=== PATIENT | female | born 1955 | race Caucasian/White ===

== ENCOUNTER → 2017-07-24 14:20 | Outpatient (CLI) | payer MEDICAID, SELFPAY ==
--- NOTE | 2017-07-24 14:26 | BD_ITS ---
STUDY: DUAL ENERGY X-RAY ABSORPTIOMETRY / DXA REASON FOR EXAM: Female, 62 years old. The patient is postmenopausal. Loss of height of 2 inches. TECHNIQUE: Bone Mineral Density (BMD) measurements of lumbar spine and bilateral hips were obtained. COMPARISON: None. FINDINGS: Lumbar Spine (L1-L4): g/cm2 (0.818) / T-score (-3.0) / Z-score (-1.7) Findings are suggestive of osteoporosis with a high fracture risk. Increased thoracic kyphosis. Left Femur Total: g/cm2 (0.698) / T-score (-2.5) / Z-score (-1.4) Left Femoral Neck: g/cm2 (0.738) / T-score (-2.2) / Z-score (-0.8) Right Femur Total: g/cm2 (0.700) / T-score (-2.4) / Z-score (-1.4) Right Femoral Neck: g/cm2 (0.743) / T-score (-2.1) / Z-score (-0.8) BD/Dexa Bone Density Study IMPRESSION: The patient is considered osteoporotic as outlined below according to World Tom Organization (WHO) criteria with a high fracture risk. Reference Information: The T-score is the number of standard deviations above or below the standard which is normal for young adults at their peak bone mineral density. The World Health Organization (WHO) interprets the T-scores as follows: Above -1 Normal bone density Between -1 and -2.5 Osteopenia Equal to / or below -2.5 Osteoporosis As a practical clinical guideline, osteopenia may be graded as follows: Mild -1 through -1.5 Moderate -1.6 through -2.0 Severe -2.1 through -2.4 The Z-score is the number of standard deviations above or below age-matched controls. A Z-score of less than -1.5 would be considered abnormal. References: 1. NIH Osteoporosis and Related Bone Diseases http://www.osteo.org 2. International Society for Clinical Densitometry http://www.iscd.org 3. National Osteoporosis Foundation http://www.nof.org Electronically Signed: Anmol Lopez MD at 15:33 EDT Tel [phone], Service support ,
== END ==
PROVIDERS: Visit Provider Nurse Practitioner Family
DX: M89.9 Disorder of bone, unspecified (principal); M41.9 Scoliosis, unspecified; M54.5 Low back pain
CPT/HCPCS: 77080

== ENCOUNTER 2017-08-03 13:00 | Outpatient (RCR) | payer MEDICAID, SELFPAY ==
--- NOTE | 2017-06-06 15:26 | HP.PTEVAL_ITS ---
Patient's Visit Information GRZEGORZ KEN is a 61 year old F referred to Physical Therapy by Honey HAMMONDS with a diagnosis of BACK AND LEG PAIN. Date of Evaluation: 06/06/17 Physical Therapist: Tangela Bray - Visit Plan Frequency: 2-3x /Week Duration: 4-6 Weeks Plan: *MONITOR LEFT LE WEAKNESS - ESPECIALLY DORSIFLEXORS. STOP AQUATIC THERAPY AND SCHEDULE REASSESSMENT WITH PT AND/OR DR. LEIJA IF PATIENT WORSENS. AQUATIC THERAPY FOR POSTURE CORRECTION/STRENGTHENING, INSTRUCTION IN APPROPRIATE BODY MECHANICS AND ACTIVITY MODIFICATIONS. DLS STARTING WITH A NEUTRAL SPINE PROGRESSING ROM TOLERATED. DAVID LE ROM, STRETCHING AND STRENGTHENING. HEP INSTRUCTION. 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 Disability: NO. Present symptoms: PATIENT REPORTS SHE HAS A LOT OF PAIN IN HER LOW BACK AND IT GOES ALL THE WAY DOWN HER LEFT LEG TO HER FOOT. A LOT OF FOOT CRAMPS. PAIN INTO RIGHT BUTTOCKS TOO. Present since: ABOUT 9 MONTHS AGO. Pain Scale: WORST 9/ 10, LEAST 3/10. Currently: 7/10. Commenced as a result of: FALLS. 3 FALLS IN THE LAST 9 MONTHS. NO FX. FALLS WERE IN THE YARD, [employer], AND [facility] [employer]. Symptoms at onset: BACK AND LEFT LEG. Worse: EVERYTHING. Better: CHANGE OF POSTITION. Disturbed sleep: YES. Previous history/Previous treatment: UNREMARKABLE. Coughing/sneezing/straining: POSITIVE. Gait: HAS TO USE CANE SOMETIMES TO TAKE PRESSURE OFF BACK AND LEG. CAN'T REALLY GO ANYWHERE BECAUSE OF THE PAIN. Difficulty initiating urinatin: NO. Accidents: NO MVA'S. Unexplained weight loss: NO. Imaging: LUMBAR X- RAYS AND MRI - LOWER SPINE IS GETTING THINNER AND DEGENERATING. IT CURVERS TO THE RIGHT. PMH: REALLY BAD ANXIETY AND PANIC ATTACKS THAT KEPT HER HOMEBOUND ABOUT A YEAR ABOUT TWO YEARS AGO. MUCH BETTER ON THE MEDICINE. HIGH CHOLESTEROL. Recent major surgery: NO. OTHER: PATIENTS WILL ALWAYS COME TO PT WITH PATIENT DUE TO HIGH ANXIETY AND ANXIETY ATTACKS. PATIENT REQUIRES LITERALLY 3 FEET OF PERSONAL SPACE AND DOES NOT LIKE TO BE TOUCHED. WILLING TO TRY AQUATIC THERAPY. NEW ONSET OF DAVID SHOULDER PAIN THAT SHE IS GOING TO TALK TO HER DOCTOR ABOUT. - Objective Sitting Posture: POOR. Standing Posture: POOR. Lordosis: REDUCED. SCOLIOSIS. Active Correction of posture: BETTER. Other Observations: RELYS ON TO HELP WITH MEDICAL HISTORY. APPEARS VERY SUPPORTIVE AND HELPFUL. PATIENT IS PLEASANT AND COOPERATIVE TO WORK WITH AND ACTUALLY DOING VERY GOOD WITH LETTING ME EXAM HER. SHE AMBULATES INDEP'LY INTO PT WITHOUT ANY ASSISTIVE DEVICES BUT ALWAYS MAKES SURE HER IS CLOSE. SHE WALKS VERY SLOW AND GUARDED WITH SHORT DAVID STRIDE LENGTH AND INCREASED TRUNK FLEXION. Motor deficit: DAVID LE'S ARE VERY WEAK. SHE HAS PARTIAL FOOT DROP ON THE LEFT. LLE WEAKNESS GREATER THAN RIGHT. RLE: HIP 3+/5, KNEE EXT 4-/5, KNEE FLEX 4/ 5 ANKLE DORSI 5/5. LLE: HIP 3/5, KNEE EXT 3+/5, KNEE FLEX 4-/5, ANKLE DORSIFLEX 2+/5. Sensory deficit: HYPERSENSATIVITY WITH LIGHT TOUCH TESTING OF RIGHT THIGH. ROM deficit: TIGHT DAVID HAMSTRINGS AND GASTROC SOLEUS COMPLEX'S. Reflexes: 2/3 DAVID LE'S. Dural Signs: *POSITIVE DAVID LE'S. Lumbar mvmt loss: flex - MOD. ext - BISI. R SG - BISI. L SG - BISI. *PATIENT HAS C/O INCREASED LOW BACK PAIN WITH LUMBAR ROM TESTING ALL PLANES. BACK MVMTS ARE SLOW AND GUARDED. Core strength: POOR. Palpation: PATIENT IS TENDER WITH LIGHT PALPATION OF HER THORACIC AND LUMBAR SPINE REGIONS. DECREASED LIGHT TOUCH SENSATION OVER SACRUM. TENDERNESS RIGHT BUTTOCK REGION > LEFT. INCREASED MUSCLE TONE DAVID PARASPINALS. - Goals Goal 1:: DECREASE C/O BACK AND DAVID LE SX'S. Goal Time Frame: 4-6 Weeks Goal 2:: IMPROVE SITTING, STANDING, WALKING, BENDING, LIFTING, ADL, HOUSEWORK AND SLEEP FUNCTION. Goal Time Frame: 4-6 Weeks Goal 3:: INSTRUCT IN PROPHYLAXIS Goal Time Frame: 4-6 Weeks - Rehabilitation Potential Rehabilitation Potential: Fair - Anticipated Interventions Patient/Client Instruction: Educate patient on: Condition, Plan of Care, Risk Factors, Benefits of Fitness Program For the Purpose of:: To improve self management Therapeutic Exercise to Include: Strength training, Balance training, Coordination, Body mechanics, Postural training, Flexibilty training, Gait and locomotor training, In an aquatic setting, Dynamic Lumbar Stabilization For the Purpose of:: To improve ability of physical actions for home/community/ work/leisure Thank you for the opportunity to evaluate your patient. For Medicare and Medicare HMO plans, please review the plan of care and approve it. It will need to be FAXED BACK to us at [phone] for Medicare purposes. Please let me know if there are questions or concerns regarding this plan of care. Physician Signature: Date:
--- NOTE | 2017-07-09 16:49 | HP.PTREVAL_ITS ---
DR.ABASAL Gerald It has been my pleasure to treat GRZEGORZ KEN over the last 6 visits for BACK AND LEG PAIN. Please see the progress note below for an update on the physical therapy plan of care! Subjective: PATIENT REPORTS SHE LIKES THE WATER. STATES SHE FEELS GOOD WHILE IN THE POOL AND AFTER BUT EVENTUALLY THE PAIN COMES BACK. Objective/Function: PATIENT HAS NOT BEEN ABLE TO COME TO PT CONSISTANTLY DUE TO ISSUES WITH HER INSURANCE BUT SHE TOLERATES TREATMENT WELL WHEN SHE IS HERE. SHE COMMUNICATES A FAIR UNDERSTANDING OF INSTRUCTIONS AFTER GIVEN TODAY BUT WILL NEED REINFORCEMENT. STARTED TO HAVE A PANIC ATTACK BECAUSE SHE CAME BACK TO PT WITHOUT HER AT FIRST THEN CALMED DOWN QUICKLY WHEN ARRIVED. UPON EXAM, THERE ARE NO SIGNIFICANT CHANGES COMPARED TO INITIAL EVALUATION. PATIENT WAS TENTATIVE BUT COOPERATIVE WITH ALL TESTING THAT WAS ALSO DONE AT [facility]. Plan Plan: CONTINUE AQUATIC THERAPY PER ORIG POC. PATIENT IS AGREEABLE. Goals Goal 1:: DECREASE C/O BACK AND DAVID LE SX'S. Goal Time Frame: 4-6 Weeks Goal Progress: Not Progressing Goal 2:: IMPROVE SITTING, STANDING, WALKING, BENDING, LIFTING, ADL, HOUSEWORK AND SLEEP FUNCTION. Goal Time Frame: 4-6 Weeks Goal Progress: Not Progressing Goal 3:: INSTRUCT IN PROPHYLAXIS Goal Time Frame: 4-6 Weeks Goal Progress: Progressing Anticipated Interventions Patient/Client Instruction: Educate patient on: Condition, Plan of Care, Risk Factors, Benefits of Fitness Program For the Purpose of:: To improve self management Therapeutic Exercise to Include: Strength training, Balance training, Coordination, Body mechanics, Postural training, Flexibilty training, Gait and locomotor training, In an aquatic setting, Dynamic Lumbar Stabilization For the Purpose of:: To improve ability of physical actions for home/community/ work/leisure Please do not hesitate to contact me at [phone] by phone or Fax: if you have questions or concerns regarding this new plan of care! Sincerely, Tangela Bray
--- NOTE | 2017-08-03 14:08 | HP.PTDCSUM ---
HP - PT D/C Summary It has been my pleasure to treat GRZEGORZ KEN under orders from Honey Ruiz, for the diagnosis of BACK AND LEG PAIN for a total of 16 visit(s). Discharge Date: 08/03/17 Please see the following information for a summary of their discharge status. - Subjective Subjective: PATIENT REPORTS SHE IS ABLE TO SIT UP BETTER AND NOW SHE HAS EX'S THAT SHE CAN DO. SHE STATES THIS HAS IMPROVED HOW SHE FEELS. SHE REPORTS SHE CAN STAND TO DO THE DISHES NOW. LAUNDRY AND VACUUMING ARE GOING BETTER TOO AND SHE CAN DO THEM WITH LESS PAIN. PATIENT REPORTS IT WAS MUCH EASIER TO WALK BACK TO THE TREATMENT ROOM TODAY (ABOUT 300 FEET) COMPARED TO BEFORE HAVING ANY PT. SHE REPORTS HER WALKING IS MORE STEADY AND LESS PAINFUL. SHE REPORTS SHE DOESN'T GET TIRED OVER-ALL. SHE REPORTS SHE IS READY TO STOP PT AND CONTINUE EXERCISING ON HER OWN. SHE STATES THE CANE STILL HELPS A LOT INCASE SHE GETS A CRAMP IN HER LEG OR SOMETHING BUT SHE DOESN'T USE IT AT HOME. - Pain LBP Pain Intensity (Out of 10): 4 L knee Pain Intensity (Out of 10): 2 RLE Pain Intensity (Out of 10): 0 - Overall Improvement % Improvement: 40 - Objective Objective/Function: ALL GOALS MET. PATIENT HAS MADE GOOD PROGRESS WITH AQUATIC THERAPY. PATIENT STILL RELIES ON TO HELP WITH MEDICAL HISTORY. APPEARS VERY SUPPORTIVE AND HELPFUL. PATIENT IS PLEASANT AND COOPERATIVE TO WORK WITH AND ACTUALLY DOING VERY GOOD WITH LETTING ME EXAM HER AGAIN TODAY. SHE AMBULATES INDEP'LY INTO PT WITH A STRAIGHT CANE. SHE WALKS WITH FAIR CADANCE, ERECT POSTURE AND NO LOSS OF BALANCE. Motor deficit: DAVID LE STRENGTH HAS IMPROVED SIGNIFICANTLY. RLE: HIP 4-/5, KNEE EXT 4/5, KNEE FLEX 5/5 ANKLE DORSI 5/5. LLE: HIP 3+/5, KNEE EXT 4-/5, KNEE FLEX 4/5, ANKLE DORSIFLEX 4/5. Sensory deficit: HYPERSENSATIVITY WITH LIGHT TOUCH TESTING OF LEFT THIGH AND POSTERIOR KNEE. Dural Signs: NEGATIVE. Lumbar mvmt loss: flex - NIL. ext - BISI. R SG - MIN. L SG - MOD. *PATIENT HAS C/O INCREASED LOW BACK PAIN WITH LUMBAR ROM TESTING INTO EXTENSION AND LEFT SG. Core strength: POOR. 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 DECREASED LIGHT TOUCH SENSATION OVER SACRUM. MUCH LESS TENDERNESS DAVID BUTTOCK REGIONS. - Goals Goal 1:: DECREASE C/O BACK AND DAVID LE SX'S. Goal Progress: Goal Met Goal 2:: IMPROVE SITTING, STANDING, WALKING, BENDING, LIFTING, ADL, HOUSEWORK AND SLEEP FUNCTION. Goal Progress: Goal Met Goal 3:: INSTRUCT IN PROPHYLAXIS Goal Progress: Goal Met - Plan Plan: D/C. PATIENT AND HER ARE AGREEABLE. - D/C Information If there are questions or concerns regarding this patient's physical therapy, please feel free to call me at [phone]. Thank you for the referral of this patient. Sincerely, Tangela Bray
--- NOTE | 2017-08-03 14:13 | HP.PTDCSUM_ITS ---
HP - PT D/C Summary It has been my pleasure to treat GRZEGORZ KEN under orders from Honey Ruiz, for the diagnosis of BACK AND LEG PAIN for a total of 16 visit(s). Discharge Date: 08/03/17 Please see the following information for a summary of their discharge status. - Subjective Subjective: PATIENT REPORTS SHE IS ABLE TO SIT UP BETTER AND NOW SHE HAS EX'S THAT SHE CAN DO. SHE STATES THIS HAS IMPROVED HOW SHE FEELS. SHE REPORTS SHE CAN STAND TO DO THE DISHES NOW. LAUNDRY AND VACUUMING ARE GOING BETTER TOO AND SHE CAN DO THEM WITH LESS PAIN. PATIENT REPORTS IT WAS MUCH EASIER TO WALK BACK TO THE TREATMENT ROOM TODAY (ABOUT 300 FEET) COMPARED TO BEFORE HAVING ANY PT. SHE REPORTS HER WALKING IS MORE STEADY AND LESS PAINFUL. SHE REPORTS SHE DOESN' T GET TIRED OVER-ALL. SHE REPORTS SHE IS READY TO STOP PT AND CONTINUE EXERCISING ON HER OWN. SHE STATES THE CANE STILL HELPS A LOT INCASE SHE GETS A CRAMP IN HER LEG OR SOMETHING BUT SHE DOESN'T USE IT AT HOME. - Pain LBP Pain Intensity (Out of 10): 4 L knee Pain Intensity (Out of 10): 2 RLE Pain Intensity (Out of 10): 0 - Overall Improvement % Improvement: 40 - Objective Objective/Function: ALL GOALS MET. PATIENT HAS MADE GOOD PROGRESS WITH AQUATIC THERAPY. PATIENT STILL RELIES ON TO HELP WITH MEDICAL HISTORY. APPEARS VERY SUPPORTIVE AND HELPFUL. PATIENT IS PLEASANT AND COOPERATIVE TO WORK WITH AND ACTUALLY DOING VERY GOOD WITH LETTING ME EXAM HER AGAIN TODAY. SHE AMBULATES INDEP'LY INTO PT WITH A STRAIGHT CANE. SHE WALKS WITH FAIR CADANCE, ERECT POSTURE AND NO LOSS OF BALANCE. Motor deficit: DAVID LE STRENGTH HAS IMPROVED SIGNIFICANTLY. RLE: HIP 4-/5, KNEE EXT 4/5, KNEE FLEX 5/5 ANKLE DORSI 5/5. LLE: HIP 3+/5, KNEE EXT 4-/5, KNEE FLEX 4/5, ANKLE DORSIFLEX 4/5. Sensory deficit: HYPERSENSATIVITY WITH LIGHT TOUCH TESTING OF LEFT THIGH AND POSTERIOR KNEE. Dural Signs: NEGATIVE. Lumbar mvmt loss: flex - NIL. ext - BISI. R SG - MIN. L SG - MOD. *PATIENT HAS C/O INCREASED LOW BACK PAIN WITH LUMBAR ROM TESTING INTO EXTENSION AND LEFT SG. Core strength: POOR. 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 DECREASED LIGHT TOUCH SENSATION OVER SACRUM. MUCH LESS TENDERNESS DAVID BUTTOCK REGIONS. - Goals Goal 1:: DECREASE C/O BACK AND DAVID LE SX'S. Goal Progress: Goal Met Goal 2:: IMPROVE SITTING, STANDING, WALKING, BENDING, LIFTING, ADL, HOUSEWORK AND SLEEP FUNCTION. Goal Progress: Goal Met Goal 3:: INSTRUCT IN PROPHYLAXIS Goal Progress: Goal Met - Plan Plan: D/C. PATIENT AND HER ARE AGREEABLE. - D/C Information If there are questions or concerns regarding this patient's physical therapy, please feel free to call me at [phone]. Thank you for the referral of this patient. Sincerely, Tangela Bray
== END 2017-08-03 19:00 | disposition home or self-care (01) ==
LOC: PT 13:00
PROVIDERS: Visit Provider Anesthesiology Pain Medicine
DX: M54.9 Dorsalgia, unspecified (principal); M79.606 Pain in leg, unspecified
CPT/HCPCS: 97113; 97162; 97164; 97530

== ENCOUNTER → 2017-11-06 10:35 | Outpatient (CLI) | payer MEDICAID, SELFPAY ==
--- NOTE | 2017-11-06 10:37 | RAD_ITS ---
STUDY: X-RAY - LUMBAR SPINE REASON FOR EXAM: Female, 62 years old. Pain TECHNIQUE: 4 view(s) of the lumbar spine were obtained. COMPARISON: None FINDINGS: Osteopenia. Slight scoliosis. Normal vertebral body height and alignment. Preserved lordosis. Normal disc intervals and endplates. Excellent minimal low lumbar facet arthropathy at L4-L5. Flexion and extension views there is no abnormal motion. RAD/L/S Spine Min 4 Views IMPRESSION: Minimal low lumbar facet arthropathy. Mild scoliosis. No other significant spondylosis. No evidence of abnormal motion on flexion or extension views. Electronically Signed: Von Oliveira, at 11:42 EDT Tel , Service support ,
--- NOTE | 2017-11-06 10:37 | RAD_ITS ---
STUDY: XR SPINE ENTIRE THORACIC T LUMBAR (W SKULL, CERVICAL AND SACRAL SPINE IF PERFORMED) REASON FOR EXAM: Female, 62 years old. Pain TECHNIQUE: Radiological exam, spine, entire thoracic and lumbar, including skull, cervical and sacral spine if performed (eg, scoliosis evaluation); 2 or 3 views. COMPARISON: Lumbar spine 11/06/2017. Thoracic spine 05/03/2017. Hip, pelvis and lumbar spine 02/14/2017. FINDINGS: Clear lungs. The chest is somewhat hyperinflated which may reflect underlying COPD. Correlate smoking history. Normal cardiomediastinal silhouette. Normal thoracic cage and shoulder girdle. No acute intra-abdominal process is evident. Unremarkable bowel pattern. Grossly normal size and position of the solid organs. Normal appearance of the pelvis, SI joints and hip joints. Very slight lumbar scoliosis. No significant thoracic scoliosis. Mildly exaggerated lumbar lordosis. Moderate thoracic kyphosis. Normal thoracic vertebral body height and alignment. Normal lumbar vertebral body height and alignment. There is no significant thoracal lumbar degenerative disc disease and facet arthropathy. There is perhaps minimal facet degeneration at L4-L5. RAD/Scoliosis 2 or 3 views IMPRESSION: Thoracic kyphosis. Mildly exaggerated lumbar lordosis. Slight lumbar scoliosis. No significant thoracal lumbar spondylosis. Electronically Signed: Von Oliveira, at 11:45 EDT Tel , Service support ,
== END ==
PROVIDERS: Visit Provider Orthopaedic Surgery
DX: M54.5 Low back pain (principal)
CPT/HCPCS: 72082; 72110

== ENCOUNTER 2017-12-07 12:30 | Outpatient (RCR) | payer MEDICAID, SELFPAY ==
--- NOTE | 2017-11-12 18:50 | HP.PTEVAL_ITS ---
Patient's Visit Information GRZEGORZ KEN is a 62 year old F referred to Physical Therapy by Kelsy Guillory with a diagnosis of LEFT SI JOINT PAIN,BACK PAIN,LEG PAIN. Date of Evaluation: 11/12/17 Physical Therapist: Osiel Randall PT, - Visit Plan Frequency: 2x /Week Duration: 4 Weeks Plan: start with grade slow DLS,posture add modalities for pain releive - Subjective Subjective: This 62 y/o female presents to physical therapy left SI ,back pain and leg pain for about 1 1/2 year. Location symmtrical lumbar radiating buttuck leg calf. Symptoms worse with walking ,standing,bending,lifting,sitting. Symptoms nothing better except with rest. C/O parathesia/tingling thigh. Patient uses cane with gait. Patient coughing/sneezing -. Patient pain affects sleeping. Pain affects ADL'S and housework tasks impairs QOL. Patient has had prior PT in the water.Patient has h/o falls. 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 SOCIAL: - Pain Bilateral Back Pain Intensity (Out of 10): 7 Pain Intensity Range: 10 Left Lower Extremity Pain Intensity (Out of 10): 6 Pain Intensity Range: 10 - Objective POSTURE: mild foward posture hips/knees flexed. GAIT: amblates with cane mild foward posture slow gio anatalgic. NEURO: c/o parathesia left left,light touch intact ,reflexes 3/3 L3-4,L4-5,L5-S1. MMT: quads/hams 4-/5 right ,left 3+ /5,hip flexion bilateral 3+/5 ankle 4/5. LUMBAR ROM : flexion mod loss, extension mod severe loss,side glides mod loss. FLEXABLITY: hams min loss - Special Tests L/S Slump test left side: Negative L/S Slump test right side: Negative L/S Left Straight Leg Raise: Negative L/S Right Straight Leg Raise: Negative - Goals Goal 1:: Independant with HEP Goal Time Frame: 4-6 Weeks Goal 2:: Independant with posture for ADL'S Goal Time Frame: 4-6 Weeks Goal 3:: Decreases lumbar pain by 40% or greater to improve function with ADL'S Goal Time Frame: 4-6 Weeks Goal 4:: Patient to improve lumbar ROM for function of recovery Goal Time Frame: 4-6 Weeks Goal 5:: Patient bve able to perform ADL'S and housework tasks with min limitations. Goal Time Frame: 4-6 Weeks - Rehabilitation Potential Physical Therapy Diagnosis: This patient has multiple comormidities to include back pain and lef leg pain impairs gait,strength ,lumbar ROM causes deficits in ADL'S thus benifit from skilled PT . Rehabilitation Potential: Good - Anticipated Interventions Patient/Client Instruction: Educate patient on: Condition, Plan of Care For the Purpose of:: To decrease pain, To increase ROM, To improve muscle performance and motor function, To improve ability to perform ADL's, To increase tolerance to activity/condition/position, To improve performance and independence with ADL's, To improve ability of physical actions for home/ community/work/leisure, To improve health of tissue, To decrease soft tissue restriction, To increase flexibility/ROM, To improve health and function, To improve ability to perform tasks related to life management Therapeutic Exercise to Include: Strength training, Body mechanics, Postural training, Flexibilty training, Dynamic Lumbar Stabilization For the Purpose of:: To decrease pain, To increase ROM, To improve nutrient delivery to tissue, To increase oxygenation perfusion, To improve muscle performance and motor function, To increase tolerance to activity/condition/ position, To improve ability of physical actions for home/community/work/leisure , To improve health of tissue, To decrease soft tissue restriction, To increase flexibility/ROM, To improve ability to perform tasks related to life management TENS: Yes IF ES: Yes Cryotherapy (ice pack, ice massage): Yes Thermo therapy (hot pack): Yes Ultrasound (thermal/non thermal): Yes For the Purpose of:: To decrease pain, To increase ROM, To improve nutrient delivery to tissue, To increase oxygenation perfusion, To improve health of tissue, To decrease soft tissue restriction Thank you for the opportunity to evaluate your patient. For Medicare and Medicare HMO plans, please review the plan of care and approve it. It will need to be FAXED BACK to us at [phone] for Medicare purposes. Please let me know if there are questions or concerns regarding this plan of care. Physician Signature: Date:
--- NOTE | 2018-03-18 13:55 | HP.PT.NRP ---
HP - Discharge Summary (1) - Patient Information GRZEGORZ KEN was seen in my office for initial evaluation on 11/12/17. The following Plan of Care was established for this patient: Initial Frequency: 2x /Week Initial Duration: 4 Weeks - Anticipated Interventions Patient/Client Instruction: Educate patient on: Condition, Plan of Care For the Purpose of:: To decrease pain, To increase ROM, To improve muscle performance and motor function, To improve ability to perform ADL's, To increase tolerance to activity/condition/position, To improve performance and independence with ADL's, To improve ability of physical actions for home/community/work/leisure, To improve health of tissue, To decrease soft tissue restriction, To increase flexibility/ROM, To improve health and function, To improve ability to perform tasks related to life management Therapeutic Exercise to Include: Strength training, Body mechanics, Postural training, Flexibilty training, Dynamic Lumbar Stabilization For the Purpose of:: To decrease pain, To increase ROM, To improve nutrient delivery to tissue, To increase oxygenation perfusion, To improve muscle performance and motor function, To increase tolerance to activity/condition/position, To improve ability of physical actions for home/community/work/leisure, To improve health of tissue, To decrease soft tissue restriction, To increase flexibility/ROM, To improve ability to perform tasks related to life management TENS: Yes IF ES: Yes Cryotherapy (ice pack, ice massage): Yes Thermo therapy (hot pack): Yes Ultrasound (thermal/non thermal): Yes For the Purpose of:: To decrease pain, To increase ROM, To improve nutrient delivery to tissue, To increase oxygenation perfusion, To improve health of tissue, To decrease soft tissue restriction This patient was last seen in our office 12/07/17. Pertinent comments regarding their Physical therapy will appear below: Patient lumbar pain focusing on DLS,POSTURAL EX'S ,MODALITIES . Patient was provided with HEP THUS D/C . At this point I will be discontinuing this patient from physical therapy. I would be happy to see this patient again in the future if found appropriate by the physician. Thank you! Osiel Randall, PT,
== END 2017-12-07 19:00 | disposition home or self-care (01) ==
LOC: PT 12:30
PROVIDERS: Visit Provider Orthopaedic Surgery
DX: M53.3 Sacrococcygeal disorders, not elsewhere classified (principal); M54.9 Dorsalgia, unspecified; M79.605 Pain in left leg
CPT/HCPCS: 97014; 97110; 97162; G0283

== ENCOUNTER → 2018-02-07 15:24 | Outpatient (CLI) | payer MEDICAID, SELFPAY ==
--- NOTE | 2018-02-07 15:25 | BI_ITS ---
MAMMOGRAPHY - BILATERAL SCREENING REASON FOR EXAM: Female, 62 years old. Routine annual screening examination. PERTINENT HISTORY: Aunt with breast cancer. TECHNIQUE: Digital bilateral breast sammie (3D mammographic acquisition) in the CC and MLO projections. 2-D mediolateral oblique (MLO) and craniocaudad (CC) views of both breasts were obtained. CAD: Full Field Digital Mammography with Computer Added Detection was performed. COMPARISON: Comparison is made with prior study dated July 31, 2016 and January 17, 2011. Comparison is also made with prior ultrasound the right breast dated July 31, 2016. FINDINGS: Breast Composition: The breasts are heterogeneously dense, which may obscure small masses. There are no dominant masses or suspicious calcifications. No other significant abnormalities are identified. There has been no significant change since the prior study. BI/SCREENING MAMM (CAD), BILAT IMPRESSION: Stable bilateral screening mammogram. Yearly follow-up mammogram recommended. (A) ASSESSMENT CATEGORY: BIRADS Category 1: Negative. A letter regarding these results will be sent to the patient by the facility within 30 days. Approximately 10% of breast cancers are not detected by mammography. A normal mammogram should not delay biopsy of a clinically suspicious abnormality. [id number] Electronically Signed: Anmol Lopez MD at 8:46 EDT Tel [phone], Service support ,
== END ==
DX: Z12.31 Encounter for screening mammogram for malignant neoplasm of breast (principal)
CPT/HCPCS: 77063; 77067

== ENCOUNTER 2018-12-13 16:30 | Outpatient (RCR) | payer MEDICAID, SELFPAY ==
--- NOTE | 2018-10-21 18:19 | HP.PTEVAL ---
Patient's Visit Information GRZEGORZ KEN is a 63 year old F referred to Physical Therapy by Azam Long MD with a diagnosis of Balance issues. Date of Evaluation: 10/21/18 Physical Therapist: LUDIVINA Bass - Visit Plan Frequency: 2x /Week Duration: 4 Weeks Plan: test pt on the neurocom and then call to see if impairments are to be treated if there are any. Probable 2 X / week for 4 weeks and to include functional transfers, gait , balance activities, LE strength with HEP - Subjective Findings: Pt has been having a lot of falling, bumping into agarwal and grabbing the table. She reports that she has fallen twice in the last month. The first time she tripped over her puppy and the other time she was walking in the yard and hit a hole and down she went. No dizziness. This all started a couple schwartz ago and had a bad few falls and hurt her back and this has slowly progressed. SHe feels that he legs are weak. She reports that she can not do the stairs withotu pain in the LB and L Leg. Dr is checking for a previous stroke in a head scan sometime soon. No dizziness. She has stairs into the home and she has railing ( 4 steps into the house). - Pain Back pain Pain Intensity (Out of 10): 4 L leg pain Pain Intensity (Out of 10): 6 - Objective Gait: walks with a straight cane with veering to the R with shorter stride length. LE MMT: B hip flex 4-/5, B knee ext 4-/5, R knee flex 4/5 and L 4-/5, B hip abd 4-/5. Pt is not able to heel and toe raise due to balance. FGA: 9. Pt needs help going from supine to sit or sidelying to sit. Pt struggles with sit to stand without the use of her UE's - Balance Scores Functional Gait Assessment Score: 9 % Disability: 70.0000 - Goals Goal 1:: I HEP Goal Time Frame: 4-6 Weeks Goal 2:: Increase LE strength by 1/2 muscle grade ( at time of eval: LE MMT: B hip flex 4-/5, B knee ext 4-/5, R knee flex 4/5 and L 4-/5, B hip abd 4-/5. Pt is not able to heel and toe raise due to balance). Goal Time Frame: 4-6 Weeks Goal 3:: Increase FGA by 5 points to decrease fall risk ( to total of 14) Goal Time Frame: 4-6 Weeks Goal 4:: Test pt on the Neurocom Goal Time Frame: 4-6 Weeks - Rehabilitation Potential Rehabilitation Potential: Good - Anticipated Interventions Patient/Client Instruction: Educate patient on: Condition, Plan of Care For the Purpose of:: To improve nutrient delivery to tissue, To improve muscle performance and motor function, To improve ability to perform ADL's, To increase tolerance to activity/condition/position, To improve performance and independence with ADL's, To improve ability of physical actions for home/community/work/leisure, To improve gait and locomotor functions, To improve endurance, To improve balance, To improve safety with gait Therapeutic Exercise to Include: Strength training, Balance training, Postural training, Flexibilty training, Gait and locomotor training, via Neurocom Balance Mas, Active ROM For the Purpose of:: To improve muscle performance and motor function, To increase tolerance to activity/condition/position, To improve performance and independence with ADL's, To decrease level of supervision to perform tasks, To improve ability of physical actions for home/community/work/leisure, To improve gait and locomotor functions, To improve endurance, To improve balance, To improve safety with gait Functional Training to Include: Gait training For the Purpose of:: To improve gait and locomotor functions, To improve safety with gait Thank you for the opportunity to evaluate your patient. For Medicare and Medicare HMO plans, please review the plan of care and approve it. It will need to be FAXED BACK to us at [phone] for Medicare purposes. For Medicare only, by signing this I certify the plan of care. Please let me know if there are questions or concerns regarding this plan of care. Physician Signature: Date:
--- NOTE | 2018-11-13 18:58 | HP.PTCOM ---
PT Communication Note 11/13/[address] Azam Long MD , Thank you for the referral of Lauryn Godwin to our clinic. She was tested on our NeuroCom Equit[employer] system today and enclosed are the pts test results. On the Sensory Organization test ( SOT) she had trouble with the use of her visual and vestibular systems to help her maintain her balance. Her center of gravity alignment was normal and she is more ankle dominant in her strategy, which is higher level. On the Motor Control Test (MCT) the pt exhibited overall normal reaction times for her age. On the Limits of Stability Test ( LOS) she had good ability to overall weight shift with only a slightly decreased ability to weight shift to the left. At this point in time, we will see the pt 2X/ week for 4 weeks for weight shifting to the L, vestibular and visual inputs to balance, LE strengthening, gait training, functional activities with HEP. Sincerely, Marta Camargo, LUDIVINA Contact Information
--- NOTE | 2019-01-28 11:24 | HP.PT.NRP ---
HP - Discharge Summary (1) - Patient Information GRZEGORZ KEN was seen in my office for initial evaluation on 10/21/18. The following Plan of Care was established for this patient: Initial Frequency: 2x /Week Initial Duration: 4 Weeks - Anticipated Interventions Patient/Client Instruction: Educate patient on: Condition, Plan of Care For the Purpose of:: To improve nutrient delivery to tissue, To improve muscle performance and motor function, To improve ability to perform ADL's, To increase tolerance to activity/condition/position, To improve performance and independence with ADL's, To improve ability of physical actions for home/community/work/leisure, To improve gait and locomotor functions, To improve endurance, To improve balance, To improve safety with gait Therapeutic Exercise to Include: Strength training, Balance training, Postural training, Flexibilty training, Gait and locomotor training, via Neurocom Balance Mas, Active ROM For the Purpose of:: To improve muscle performance and motor function, To increase tolerance to activity/condition/position, To improve performance and independence with ADL's, To decrease level of supervision to perform tasks, To improve ability of physical actions for home/community/work/leisure, To improve gait and locomotor functions, To improve endurance, To improve balance, To improve safety with gait Functional Training to Include: Gait training For the Purpose of:: To improve gait and locomotor functions, To improve safety with gait This patient was last seen in our office 12/13/18. Pertinent comments regarding their Physical therapy will appear below: Pt reported on her last visit that she was really sore and was not tolerating PT well She did not reschedule and will be discharged at this time. At this point I will be discontinuing this patient from physical therapy. I would be happy to see this patient again in the future if found appropriate by the physician. Thank you! Marta Camargo, MPT
== END 2018-12-13 19:00 | disposition home or self-care (01) ==
LOC: PT 16:30
PROVIDERS: Referring Provider Psychiatry & Neurology Neurology; Visit Provider Psychiatry & Neurology Neurology
DX: R26.89 Other abnormalities of gait and mobility (principal)
CPT/HCPCS: 97110; 97161; 97750

== ENCOUNTER → 2019-11-27 17:47 | Outpatient (CLI) | payer MEDICAID, SELFPAY ==
--- NOTE | 2019-11-27 17:55 | CT_ITS ---
STUDY: CT BRAIN WITH AND WITHOUT CONTRAST REASON FOR EXAM: Female, 64 years old. MIGRAINES 2-3 X A WEEK RADIATION DOSAGE (If Supplied By Facility): CTDIvol = ( 44.99 ) mGy, DLP = ( 1603.47 ) mGycm TECHNIQUE: Transaxial CT imaging of the brain was performed pre and post contrast administration. The examination was performed with intravenous administration of IV 50mL Isovue-300. Individualized dose optimization techniques were used for this CT. COMPARISON: None. FINDINGS: Normal soft tissue structures. Normal calvarium. Normal size ventricles and extra-axial spaces for the patient''s age. Normal white matter tracts of the cerebral hemispheres. Normal basal ganglia and thalami. Normal brainstem. Normal cerebellum. There is no intracranial hemorrhage. There are no findings of an acute ischemic infarction. Normal visualized paranasal sinuses. CT/Brain/Head W/WO Contrast IMPRESSION: Normal unenhanced and enhanced CT scan of the brain. Electronically Signed: Kashmir Lucia MD at 23:38 EDT , Service support ,
[2019-11-27 18:01] LABS: CREATININE FINGERSTICK 0.8 mg/dL (0.55-1.02)
== END ==
DX: G43.909 Migraine, unspecified, not intractable, without status migrainosus (principal)
CPT/HCPCS: 70470; Q9967

== ENCOUNTER 2020-03-24 13:37 | Emergency (ER) | payer MEDICAID, SELFPAY ==
[2020-03-24 13:40] VITALS: BP 133/71; PULSE 81; RESP 20; TEMP 36.2; O2SAT 96; BMI 22.6
[2020-03-24 14:04] VITALS: O2SAT 96
--- NOTE | 2020-03-24 14:30 | ED.VISSUMM ---
- ER Visit Summary Date of Service: 03/24/20 Chief Complaint: Shortness of breath History of Present Illness: The patient is a 64 F who presents with shortness of breath that began suddenly approximately 1-1/2 hours prior to arrival. Patient states she was cleaning her house when this began. Patient states she has a history of COPD. Patient states she felt like she could not catch her breath. Patient states this has been improving since she arrived here in the emergency department. Patient denies any cough. Patient denies any chest pain or palpitations. Patient does admit to some nausea and vomiting. Patient denies any fevers or chills. Patient denies any loss of taste or smell. Patient states her was recently hospitalized with similar symptoms but was Covid negative. Physical Examination: Vital signs are stable. Patient is afebrile. Patient is in no acute distress. Oral mucosa is pink and moist. Neck is supple. Trachea is midline. There is no JVD. Heart was regular rate and rhythm. Lungs are diminished bilaterally. There is good respiratory effort noted. Abdomen is soft. Bowel sounds are normal. There is no tenderness. Cranial nerves II through XII are intact. There are no focal motor or sensory deficits noted. Extremities are intact. There is no calf tenderness or edema. Test Results: CBC and comprehensive metabolic profile were obtained and were essentially within normal limits. Lactate was normal. COVID-19 rapid antigen test was negative. Influenza test was negative. Portable 1 view chest x-ray was obtained. On my interpretation, lung paredes are clear. There is normal cardiac silhouette. Bony thorax is normal. There is no acute process noted. Radiologist also interpreted the x-ray and agrees. Emergency Department Course and Treatment: Patient was given albuterol inhaler here. Patient was given Zofran for nausea. Patient feels better on reevaluation. Patient was instructed to continue her inhaler as needed. Patient was instructed to follow-up with her primary care physician in 5 to 7 days. Patient understood and was agreeable with the plan. All questions were answered. Disposition: Discharge home Impression: 1. Dyspnea. This note was generated with VIVAation software. It may contain incorrect words, spelling, and punctuation that were not noted in review of the chart prior to signing ED Disposition - Plan for ED Patient: Disposition: Home or Assisted Living Diagnosis: Dyspnea Instructions: ED Dyspnea Referrals: [facility],Sun Powers [Primary Care Provider] - 5-7 Days
[2020-03-24 14:46] VITALS: BP 122/68; PULSE 82; RESP 20; TEMP 36.4; O2SAT 94
[2020-03-24] MEDS: Ondansetron 4 MG/2 ML Vial IV (14:47)
[2020-03-24 15:00] VITALS: BP 119/63; PULSE 82; RESP 22; TEMP 36.3; O2SAT 94
--- NOTE | 2020-03-24 15:12 | RAD_ITS ---
STUDY: X-RAY CHEST REASON FOR EXAM: Female, 64 years old. SUDDEN ONSET DYSPNEA WHILE CLEANING HOUSE, NAUSEA. SPOUSE HOSPITALZED RECENTLY WITH SIMILAR SYMPTOMS, COVID NEG PER EMS. HX OF COPD. TECHNIQUE: Single AP portable view of the chest. COMPARISON: 03/06/2016 FINDINGS: The lungs are clear and expanded. There is no demonstrated pleural abnormality. Normal size heart. Normal mediastinum and lev. Normal visualized pulmonary arteries. Normal visualized aortic arch and descending thoracic aorta. Normal visualized thoracic spine. Normal visualized ribs, clavicles, and shoulders. There is no demonstrated abnormality of the visualized soft tissue structures of the upper abdomen. RAD/Chest 1 View (Portable) IMPRESSION: Normal x-ray examination of the chest. Electronically Signed: Von Ruiz MD at 15:37 EST Tel , Service support ,
[2020-03-24 15:15] LABS: Absolute Lymphocyte Count 2.11 X10^3/uL (0.83-4.51); Absolute Neutrophil Count 7.2 X10^3/uL (2.0-7.7); Basophil# 0.08 X10^3/uL; Basophil% 0.8 % (0-1); Eosinophil# 0.17 X10^3/uL; Eosinophils% 1.7 % (0-5); Hematocrit 47.6 % (37-47); Hemoglobin 15.9 g/dL (12.0-15.0); Lymphocyte # 2.11 X10^3/ul (4.0); Lymphocyte % 20.9 % (19-41); Mean Corp Hgb Conc 33.4 g/dL (32-36); Mean Corpuscular Volume 86.9 fL (81-99); Mean Platelet Vol. 10.3 fl (6.2-12.0); Monocyte# 0.49 X10^3/uL; Monocyte% 4.9 % (0-10); NRBC Flagged by Analyzer 0 % (0-5); Neutrophil % 71.3 % (47-70); Platelet Count 341 K/mm3 (150-450); RBC Distribution Width CV 14.1 % (11.6-14.6); RBC Distribution Width SD 45.1 fl (35.1-43.9); Red Blood Count 5.48 M/mm3 (4.2-5.4); White Blood Count 10.1 K/mm3 (4.4-11.0)
[2020-03-24 15:26] LABS: ALB/GLOB Ratio 1.1 RATIO (0.9-2.4); AST(SGOT) 81 U/L (15-37); Alanine Aminotransfer ALT/SGPT 42 U/L (13-56); Albumin, Serum 3.9 g/dL (3.2-5.0); Alkaline Phosphatase 126 U/L (45-117); Anion Gap 7 (5-15); BUN 12 mg/dL (7-18); BUN/Creat Ratio 12.2 RATIO (10-20); Calcium,Total 9.2 mg/dL (8.5-10.1); Chloride 109 mmol/L (98-107); Creatinine, Serum 0.98 mg/dL (0.55-1.02); EST Glomerular Filtration Rate 60 mL/min (>60); Est Glom Filt Rate - Afr Amer 73 mL/min (>60); Estimated Creatinine Clearance 54.29 ml/min; Globulin 3.7 g/dL (2.2-4.2); Glucose 133 mg/dL (74-106); Potassium 3.6 mmol/L (3.5-5.1); Protein, Total 7.6 g/dL (6.4-8.2); Sodium Level 141 mmol/L (136-145)
[2020-03-24 16:00] VITALS: BP 126/64; PULSE 84; RESP 25; TEMP 36.4; O2SAT 93
[2020-03-24 17:01] VITALS: BP 118/70; PULSE 84; RESP 20; O2SAT 98
[2020-03-24 19:05] LABS: Reflex Lactate? Y
== END 2020-03-24 17:06 | disposition home or self-care (01) ==
PROVIDERS: Emergency Provider Emergency Medicine
DX: R06.00 Dyspnea, unspecified (principal); R11.2 Nausea with vomiting, unspecified; J44.9 Chronic obstructive pulmonary disease, unspecified; F41.9 Anxiety disorder, unspecified; G43.909 Migraine, unspecified, not intractable, without status migrainosus; Z79.899 Other long term (current) drug therapy; F17.200 Nicotine dependence, unspecified, uncomplicated
CPT/HCPCS: 71045; 80053; 83605; 85025; 87040; 87426; 87804; 96374; 99285; A4216; J2405

== ENCOUNTER → 2020-08-31 13:51 | Outpatient (CLI) | payer MEDICAID, SELFPAY ==
--- NOTE | 2020-08-31 14:00 | BD_ITS ---
STUDY: DUAL ENERGY X-RAY ABSORPTIOMETRY / DXA REASON FOR EXAM: Female, 65 years old. Postmenopausal osteoporosis screening. TECHNIQUE: Bone Mineral Density (BMD) measurements of lumbar spine and bilateral hips were obtained. COMPARISON: 07/24/2017. FINDINGS: Lumbar Spine (L1-L4): g/cm2 (0.791) / T-score (-3.2) / Z-score (-1.7) Bone mineral density has decreased 3.3% since the 2018 study. Left Femur Total: g/cm2 (0.688) / T-score (-2.5) / Z-score (-1.1) Left Femoral Neck: g/cm2 (0.659) / T-score (-2.8) / Z-score ( ) -1.6 Bone mineral density has decreased 5.6% since 3 2017 study. Right Femur Total: g/cm2 (0.701) / T-score (-2.4) / Z-score (-1.0) Right Femoral Neck: g/cm2 (0.656) / T-score (-2.8) / Z-score (-1.6) Bone mineral density has decreased 6.3% since the 2018 study. BD/Dexa Bone Density Study IMPRESSION: The patient is considered osteoporotic as outlined below according to World Tom Organization (WHO) criteria with a high fracture risk. Reference Information: The T-score is the number of standard deviations above or below the standard which is normal for young adults at their peak bone mineral density. The World Health Organization (WHO) interprets the T-scores as follows: Above -1 Normal bone density Between -1 and -2.5 Osteopenia Equal to / or below -2.5 Osteoporosis As a practical clinical guideline, osteopenia may be graded as follows: Mild -1 through -1.5 Moderate -1.6 through -2.0 Severe -2.1 through -2.4 The Z-score is the number of standard deviations above or below age-matched controls. A Z-score of less than -1.5 would be considered abnormal. References: 1. NIH Osteoporosis and Related Bone Diseases http://www.osteo.org 2. International Society for Clinical Densitometry http://www.iscd.org 3. National Osteoporosis Foundation http://www.nof.org Electronically Signed: Jonel Ramos MD at 14:22 EDT , Service support ,
== END ==
PROVIDERS: Referring Provider Nurse Practitioner Adult Health; Visit Provider Nurse Practitioner Adult Health
DX: Z13.820 Encounter for screening for osteoporosis (principal)
CPT/HCPCS: 77080

== ENCOUNTER 2021-11-11 18:13 | Emergency (ER) | payer MEDICARE, MEDICAID, SELFPAY ==
[2021-11-11 18:14] VITALS: BP 140/69; PULSE 83; RESP 16; TEMP 36.7; O2SAT 97; BMI 23.3
--- NOTE | 2021-11-11 18:19 | RAD_ITS ---
STUDY: RIGHT WRIST X-RAY SERIES OF 1829 HOURS ON 11/11/2021 REASON FOR EXAM: 66-year-old female with injury to right wrist. TECHNIQUE: 3 view(s) of the wrist were obtained. COMPARISON: None. FINDINGS: There are no fractures or dislocations. There are no arthritic or degenerative changes. No osseous lytic, sclerotic or mass lesions are present. The surrounding soft tissues are normal. RAD/Wrist min 3 Views IMPRESSION: 1. Normal x-ray examination of the right wrist. 2. No fractures or dislocations. Electronically Signed: Fabian Frost MD at 19:08 EDT ,
[2021-11-11] MEDS: Acetaminophen 325 MG Tablet 650 MG PO (19:35)
--- NOTE | 2021-11-11 19:41 | EX.ED.UPPERE ---
HPI History of Present Illness Chief Complaint: Fall Narrative Narrative: Patient presents with injury to her right wrist status post fall. She states she was taking the dog out, when she became wrapped up in its lead and she fell onto grass and cement. She injured her right wrist. She denies hitting her head or loss of consciousness. She now has pain in her right wrist diffusely that is worse with movement. She is right-hand dominant. She has not taken any analgesics for it. She presents because of the right wrist pain. Past medical history includes depression and anxiety. She denies other significant past medical history, no blood thinners. [facility] Medical History COPD (chronic obstructive pulmonary disease) HLD (hyperlipidemia) Migraine Osteoporosis Home Medications Omeprazole [Prilosec] 20 mg PO DAILY 03/06/16 [History Last Taken Unknown] hydroxyzine pamoate 50 mg capsule 25 - 75 mg PO Q6H PRN PRN Anxiety 03/06/16 [History Last Taken Unknown] multivitamin with folic acid 400 mcg tablet (Thera) 1 tab PO DAILY 03/06/16 [History Last Taken Unknown] paroxetine HCl 40 mg tablet (Paxil) 40 mg PO DAILY 03/06/16 [History Last Taken Unknown] pravastatin 20 mg tablet 20 mg PO QHS 03/06/16 [History Last Taken Unknown] propranolol 20 mg tablet 40 mg PO BID 03/06/16 [History Last Taken Unknown] pregabalin 50 mg capsule 50 mg PO BID 03/24/20 [History Last Taken Unknown] Allergy/AdvReac Type Severity Reaction Status Date / Time propoxyphene [From Darvon] AdvReac Other Verified 11/11/21 18:16 Surgical History navel surgery Social History Smoking Status: Current every day smoker tobacco type: cigarettes ROS ROS ED ROS Narrative Constitutional: No fever, no chills. HEENT: No sore throat. No neck pain. No loss of vision. No rhinorrhea. Cardiovascular: No chest pain. No palpitations. No pedal edema. Respiratory: No cough, no shortness of breath. Abdominal: No abdominal pain. No nausea. No vomiting. Genitourinary: No dysuria. No hematuria. Musculoskeletal: No myalgias. Right wrist pain worse with movement. Neurologic: No headaches. No dizziness. No lightheadedness. Skin: No rash. No change in color. Psychiatric: No depression. No anxiety. EXAM Physical Exam Narrative Exam Narrative: Afebrile. Vital signs noted. HEENT: Normocephalic. Atraumatic. PERRL, EOMI. Neck soft and supple. No point tenderness or step off. Cardiovascular: Regular rate and rhythm. No murmurs, rubs, or gallops appreciated. Respiratory: No tachypnea. Lungs clear to auscultation bilaterally. Gastrointestinal: Abdomen soft, nontender, with normoactive bowel sounds. No rebound or guarding. Neurological: Awake. Alert. Nonfocal, nonlateralizing. Skin: No rash. Normal color. No pallor. Musculoskeletal: No pedal edema. Diffuse tenderness right distal radius. No anatomical snuffbox tenderness. Able to oppose thumb. Abduction and abduction of fingers intact. No pain at elbow and above. Full range of motion including pronation and supination of forearm and elbow. Const Vital Signs: 11/11/21 18:14 Temperature 98.0 F Temperature Source Temporal Pulse Rate 83 Respiratory Rate 16 Blood Pressure 140/69 H Blood Pressure Mean 92 Pulse Ox 97 Oxygen Delivery Method Room Air MDM MDM MDM Narrative Medical decision making narrative: Patient was given Tylenol for analgesia and an ice pack for comfort. X-rays obtained of the right wrist interpreted by myself shows no evidence of fracture. At this point in time, she will be placed in a Velcro splint and continue ice and elevation of her right wrist. She will take [id number] analgesics as needed. She will follow-up with her primary care provider. I feel she can be discharged safely home with follow-up. Return instructions to the emergency department were reviewed. Disposition is discharged home in stable condition. Radiography Diagnostic Testing: Clinical Impression(s) from Imaging Studies Wrist X-Ray 11/11/21 18:19 IMPRESSION: 1. Normal x-ray examination of the right wrist. 2. No fractures or dislocations. Electronically Signed: Fabian Frost MD at 19:08 EDT , Discharge Plan Triage Chief Complaint: Fall ED Provider: Justo Keene Dx/Rx/DC Orders Clinical Impression: Fall, Right wrist sprain Instructions: ED Wrist Sprain, ED Fall Prevention Prescriptions: No Action hydroxyzine pamoate 50 MG capsule 25 - 75 mg PO Q6H PRN PRN (Reason: Anxiety) pravastatin 20 MG tablet 20 mg PO QHS paroxetine HCl [Paxil] 40 MG tablet 40 mg PO DAILY propranolol 20 MG tablet 40 mg PO BID multivitamin with folic acid [Thera] 1 TABLET tablet 1 tab PO DAILY Omeprazole [Prilosec] 40 MG capsule 20 mg PO DAILY pregabalin 50 MG capsule 50 mg PO BID Primary Care Provider: Arlin Kelly Referrals: Arlin Kelly, [facility] [Primary Care Provider] - 1 Week if not improving Disposition Disposition: Home, Self Care
[2021-11-11 19:46] VITALS: RESP 16
--- NOTE | 2021-11-11 19:47 | ED.RN ---
REVIEWED D/C INSTRUCTIONS, FOLLOW UP CARE, PAIN MANAGEMENT, AND S/S THAT WOULD WARRANT A RETURN TO THE ED WITH PT. PT VERBALIZED AN UNDERSTANDING AND DENIES FURTHER QUESTIONS FOR THIS RN. PT SKIN P/W/D, RESP EVEN AND UNLABORED, PT A&O X 3, NO DISTRESS NOTED. PT AMBULATED OUT OF ED, GAIT STEADY.
== END 2021-11-11 19:48 | disposition home or self-care (01) ==
PROVIDERS: Emergency Provider Emergency Medicine; PCP Nurse Practitioner Adult Health; Visit Provider Emergency Medicine
DX: S63.91XA Sprain of unspecified part of right wrist and hand, initial encounter (principal); J44.9 Chronic obstructive pulmonary disease, unspecified; F41.9 Anxiety disorder, unspecified; W19.XXXA Unspecified fall, initial encounter; F17.210 Nicotine dependence, cigarettes, uncomplicated; E78.5 Hyperlipidemia, unspecified; M81.0 Age-related osteoporosis without current pathological fracture; Z79.899 Other long term (current) drug therapy; G43.909 Migraine, unspecified, not intractable, without status migrainosus
CPT/HCPCS: 73110; 99283

== ENCOUNTER 2022-07-10 15:57 | Inpatient (IN) | payer MEDICARE, MEDICAID, SELFPAY ==
[2022-07-10] VITALS (11 sets, daily range): BP systolic 113–143; BP diastolic 52–76; PULSE 124–146; RESP 12–22; TEMP 36.3–36.8; O2SAT 88–95; BMI 18.4; BMI 19.8
--- NOTE | 2022-07-10 16:19 | EKG12_ITS ---
Test Reason : INCREASED HR Blood Pressure : / mmHG Vent. Rate : 141 BPM Atrial Rate : 141 BPM P-R Int : 128 ms QRS Dur : 062 ms QT Int : 346 ms P-R-T Axes : 000 045 058 degrees QTc Int : 529 ms Sinus tachycardia Septal infarct , age undetermined Abnormal ECG Confirmed by JUAN MOTA, YOHANA ([id number]), online content editor HARSHAD CHRISTOPHER ([id number]) on 07/12/2022 9:53:45 AM Referred By: ES/UG Confirmed By:YOHANA MARTINEZ MD
--- NOTE | 2022-07-10 16:50 | RAD_ITS ---
INDICATION: Diminished breath sounds right, dullness to percus EXAMINATION/TECHNIQUE: X-RAY - XR Chest 2 Views COMPARISON: None. FINDINGS: LINES/DEVICES: None. LUNGS: Right lower lobe consolidation and pleural effusion.. No pneumothorax. MEDIASTINUM AND CARDIOVASCULAR STRUCTURES: Cardiac silhouette not enlarged. Central airways and mediastinal contour are unremarkable. BONES AND SOFT TISSUES: Unremarkable. RAD/Chest PA and Lateral IMPRESSION: Right lower lobe consolidation and pleural effusion.. Electronically Signed: Ravindra Robison DO at 17:19 EDT Reading Location ID and State: [facility] / [place] Tel [phone], Service support ,
[2022-07-10 16:51] LABS: Absolute Lymphocyte Count 0.28 X10^3/uL (0.83-4.51); Absolute Neutrophil Count 14.1 X10^3/uL (2.0-7.7); Basophil# 0.03 X10^3/uL; Basophil% 0.2 % (0-1); Hematocrit 39.2 % (37-47); Hemoglobin 12.4 g/dL (12.0-15.0); Lymphocyte # 0.28 X10^3/ul (0.83-4.51); Lymphocyte % 1.8 % (19-41); Mean Corp Hgb Conc 31.6 g/dL (32-36); Mean Corpuscular Hgb 24.3 pg (27.0-32.0); Mean Corpuscular Volume 76.9 fL (81-99); Mean Platelet Vol. 9.1 fl (6.2-12.0); Monocyte# 0.79 X10^3/uL; Monocyte% 5.1 % (0-10); NRBC Flagged by Analyzer 0 % (0-5); Neutrophil # 14.11 X10^3/uL (2.7-7.7); Neutrophil % 92.1 % (47-70); POSITIVE DIFFERENTIAL YES; Platelet Count 563 K/mm3 (150-450); RBC Distribution Width SD 40.5 fl (35.1-43.9); White Blood Count 15.3 K/mm3 (4.4-11.0)
[2022-07-10 16:54] LABS: Differential Indicated SCAN CRITERIA MET
[2022-07-10 16:55] LABS: Blood Gas Specimen Type VEN; VBG BASE EXCESS 3 mmol/L (-1.0-3.5); VBG Bicarbonate 27 mmol/L (22-26); VBG PO2 43 mmHg (25-40); VBG SO2 82 % (50-70); VBG TCO2 28 mmol/L (23-33); VBG pCO2 35.8 mmHg (41-51); VBG pH 7.48 (7.32-7.42)
--- NOTE | 2022-07-10 16:59 | EDS_ITS ---
HPI History of Present Illness Chief Complaint: Shortness of Breath Detail of Chief Complaint: Dyspnea, malignant pleural effusion, weight loss Informant: patient, spouse/S.O. and other (Radiation oncologist from the [facility]) Onset/Context/Timing Onset: Days Context: Gradual Onset Timing: Continuous Quality: Shortness of breath, dyspnea on exertion, metastatic cancer Location: Presumed origin is long Current Severity: Moderate Maximum Severity: Severe Worsened by: Walking Relieved by: Nothing Associated Symptoms Associated Symptoms: Denies fever or chills. Detailed HPI narrative Narrative Narrative: Patient is a 67-year-old woman who has a right upper lung mass presumed primary. Both patient and states that there are characteristics of breast. 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 There are no records at [facility]. Per patient and this is her first visit. We will obtain records from [facility] through [employer]. Patient presents because increasing shortness of breath, dyspnea on exertion, weight loss, she had a chest x-ray today which revealed a significant pleural effusion on the right. She was diagnosed with cancer 2 months ago. She denies fever or chills. She presently denies headache, visual, ocular auditory symptoms. She denies neck pain or neck stiffness. She does report chest pain has been present for some time. She states she was told this is due to the lung mass. Per her radiation oncologist plan is palliative radiation therapy followed by gamma knife followed by chemotherapy. Patient does complain of constant nausea. She denies change in color or consistency of her stool. She denies urologic symptoms. Prior similar symptoms: Yes Recent Illness/Hospitalization: Yes [facility] Medical History COPD (chronic obstructive pulmonary disease) HLD (hyperlipidemia) Migraine Osteoporosis Home Medications Omeprazole [Prilosec] 20 mg PO DAILY 03/06/16 [History Last Taken Unknown] hydroxyzine pamoate 50 mg capsule 25 - 75 mg PO Q6H PRN PRN Anxiety 03/06/16 [History Last Taken Unknown] multivitamin with folic acid 400 mcg tablet (Thera) 1 tab PO DAILY 03/06/16 [History Last Taken Unknown] paroxetine HCl 40 mg tablet (Paxil) 40 mg PO DAILY 03/06/16 [History Last Taken Unknown] pravastatin 20 mg tablet 20 mg PO QHS 03/06/16 [History Last Taken Unknown] propranolol 20 mg tablet 40 mg PO BID 03/06/16 [History Last Taken Unknown] pregabalin 50 mg capsule 50 mg PO BID 03/24/20 [History Last Taken Unknown] Allergy/AdvReac Type Severity Reaction Status Date / Time propoxyphene [From Darvon] AdvReac Other Verified 07/10/22 16:00 Surgical History nav surgery Social History (Updated 07/10/22 @ 17:[address] Uvaldo Borrero MD) household members: spouse Smoking Status: Former smoker substance use type: does not use ROS ROS ED Constitutional Constitutional ED: Reports sweats and weight loss; Denies chills, fever(s) or subjective Eyes Eyes: Denies blurry vision, change in vision or diplopia ENT ENT ED: Denies ear pain, rhinorrhea or sore throat Cardiovascular Cardiovascular: Reports chest pain and racing heartbeat; Denies orthopnea, palpitations or paroxysmal nocturnal dyspnea Respiratory/Chest Respiratory/Chest: Reports cough, dyspnea and dyspnea on exertion; Denies orthopnea or paroxysmal nocturnal dyspnea Gastrointestinal Gastrointestinal: Reports nausea; Denies abdominal pain, constipation, melena or vomiting Genitourinary Genitourinary ED: Denies dysuria, hematuria or urinary frequency Musculoskeletal Musculoskeletal: Denies arthralgias, back pain, myalgias or neck pain Integumentary Denies Abrasions or rash Neurologic Neurologic: Reports headache(s) and weakness; Denies paresthesias Hematologic/Lymphatic Hematologic/Lymphatic: Reports anemia EXAM Physical Exam Const Vital Signs: 07/10/22 15:58 07/10/22 16:34 07/10/22 16:50 Temperature 97.9 F Temperature Source Temporal Pulse Rate 146 H Respiratory Rate 20 H Respiratory Effort Short of Breath Respiratory Depth Normal Respiratory Pattern Normal Blood Pressure 140/72 H Blood Pressure Mean 94 Pulse Ox 93 92 Oxygen Delivery Method Room Air Room Air Room Air Oxygen Flow Rate (L/min) 07/10/22 17:55 07/10/22 18:02 Temperature Temperature Source Pulse Rate 134 H 134 H Respiratory Rate 12 22 H Respiratory Effort Respiratory Depth Respiratory Pattern Blood Pressure 143/76 H 121/69 H Blood Pressure Mean 98 86 Pulse Ox 92 92 Oxygen Delivery Method Nasal Cannula Nasal Cannula Oxygen Flow Rate (L/min) 3 3 Positive cachectic Constitutional Narrative: Patient is tachypneic. Monitor reveals a sinus tach of 144. Patient appears pale. General Appearance ED: cachectic and pallor; Negative for cyanotic, diaphoretic or NAD Nutritional Appearance: cachectic HEENT Reports dry mucous membranes HEENT Narrative: Head is atraumatic normocephalic. Ears normal. Nares patent. Posterior pharynx. Mouth ED: Yes dry mucous membranes Mouth: dry mucous membranes Eyes PERRL and EOMs intact bilaterally General Eye ED: Yes pale conjunctiva; Negative for scleral icterus Neck no lymphadenopathy, supple and no JVD Chest Wall inspection of chest normal and palpation of chest normal Resp No normal respiratory effort and No clear to auscultation bilaterally Resp Narrative: Absent breath sounds lower half of the right lung field posteriorly. There is also dullness to. Auscultation: rales left base Cardio regular rhythm, S1 normal heart sound, S2 normal heart sound and no murmurs Rate: tachycardic GI normal to inspection, nondistended, normoactive bowel sounds, non-tender and non-distended; Negative for hepatosplenomegaly Palpation: soft Back/Spine no CVA tenderness Extremity General Extremety ED: Negative for edema or tenderness General Extremity: Negative for edema Neuro oriented x3, CN's II-XII intact bilaterally and no sensory deficits noted Sensorium / Orientation: alert Psych mental status grossly normal Skin no rashes or lesions noted, no wounds and No skin turgor normal General Skin Exam: pallor; Negative for elasticity normal or jaundice MDM MDM MDM Narrative Medical decision making narrative: Review of records from [facility] office revealed normal Pap smear and endometrial biopsy. This was from 1955. Reviewed oncology note prior to radiation therapy. Medication list reviewed. Also reviewed Dr. Torre's EGD consultation. Pathology revealed metastatic carcinoma. Tissue that was biopsied revealed areas of necrosis as well as apparent ductal formation. The cells of interest revealed CK20, CEA TA 3, and mamma globulin. The cells were negative for ER, MO and HER2. I also negative for multiple other tests performed at the [facility]. Conclusion was that these histologic and immunohistochemical features are characteristic of metastatic carcinoma. They were nonspecific for site of origin. Pathologist documented the TR PS-1 and week CAT a 3/mamma globulin could be consistent with breast carcinoma. Patient was seen today. She did not undergo radiation therapy. She was sent to the hospital because of significant pleural effusion. Upon arrival patient is tachypneic tachycardic and hypoxic. Suspect her dyspnea and tachycardia are due to her malignant pleural effusion. Since x-ray is not available for review from the [facility] we will repeat chest x-ray. Will obtain blood work. VBG was obtained because of her significant smoking history to evaluate acid-base s tatus and rule out CO2 retention. She is presently on oxygen. Dr. Wright presently is not available. Will discuss risk benefits of thoracentesis which patient is in need of. Differential diagnosis is dyspnea due to malignant pleural effusion, underlying pneumonia, pulmonary embolus. Since the effusion is loculated best to have thoracentesis done under ultrasound guidance by interventional radiologist. History & Record Review Additional record(s) reviewed:: Prior outpatient record, Prior labs and Other (Spoke with radiation oncologist prior to patient's arrival) Lab Data Attestation: I reviewed the patient's lab results. Lab results narrative: CBC is remarkable for white count of 15.3 thousand with shift of 92% segs. H&H is normal at 12.4 and 39.2. Labs: Laboratory Results - last 24 hr 07/10/22 07/10/22 07/10/22 16:45 16:45 16:45 WBC 15.3 H RBC 5.10 Hgb 12.4 Hct 39.2 MCV 76.9 L MCH 24.3 L MCHC 31.6 L RDW Std Deviation 40.5 RDW Coeff of Safia 15.0 H Plt Count 563 H MPV 9.1 Immature Gran % (Auto) 0.800 Neut % (Auto) 92.1 H Lymph % (Auto) 1.8 L [place] % (Auto) 5.1 Eos % (Auto) 0.0 Baso % (Auto) 0.2 Absolute Neuts (auto) 14.1 H Absolute Lymphs (auto) 0.28 L Nucleated RBC % 0 Differential Comment SCANNED Sodium 135 L Potassium 3.5 Chloride 102 Carbon Dioxide 25.0 Anion Gap 8 BUN 16 Creatinine 0.72 Estim Creat Clear Calc 45.42 Est GFR (MDRD) Af Amer 104 Est GFR (MDRD) Non-Af 86 BUN/Creatinine Ratio 22.3 H Glucose 188 H Lactic Acid 2.0 Calcium 9.0 Total Bilirubin 0.30 AST 19 ALT 19 Alkaline Phosphatase 123 H Total Protein 7.6 Albumin 2.1 L Globulin 5.5 H Albumin/Globulin Ratio 0.4 L ABG Data ABG results: ABG 07/10/22 16:51 Specimen Type APARNA VBG pH 7.48 H VBG pO2 43 H VBG HCO3 27 H VBG Total CO2 28 VBG O2 Sat (Calc) 82 H VBG Base Excess 3 POC Mix VBG pCO2 Pt Tmp 35.8 L Radiography Chest X-Ray - ED: 2 View and Read by ED Physician (Patient has a right lower lobe area of consolidation with effusion. This is different than what the radiation oncologist inform me of. With her having elevated white count need to consider pneumonia. Patient does have 3 SIRS criteria with a normal lactate and lactate is not elevated. She is not ) Diagnostic Testing: Clinical Impression(s) from Imaging Studies Chest X-Ray 07/10/22 16:50 IMPRESSION: Right lower lobe consolidation and pleural effusion.. Electronically Signed: Ravindra Robison DO at 17:19 EDT Reading Location ID and State: [facility] / [place] Tel [phone], Service support , Rhythm Strip Rhythm Strip: Sinus Tach Rate: 144 Ectopy: None EKG Initial EKG: Attestation: I personally reviewed and interpreted this EKG as follows: Interpretation: Sinus Tachycardia (Rate is 77. MO interval 154 ms. Cures duration 94 ms. QT duration 282 ms. Ophelia is normal. Patient has an RR prime in V1 and V2. Rate is 141. Decreased anterior force. MO interval is 128 ms. QRS duration 62 ms. QT duration 346 ms. Ophelia is normal. There is no right heart strain noted.) Discharge Plan Dx/Rx/DC Orders Clinical Impression: Right lower lobe consolidation, Metastatic cancer, Pleural effusion, right, Acute respiratory failure with hypoxia, SIRS (systemic inflammatory response syndrome), Hypoalbuminemia due to protein-calorie malnutrition, Sinus tachycardia Disposition Disposition: [facility]
[2022-07-10 17:11] LABS: ALB/GLOB Ratio 0.4 RATIO (0.9-2.4); AST(SGOT) 19 U/L (15-37); Alanine Aminotransfer ALT/SGPT 19 U/L (13-56); Albumin, Serum 2.1 g/dL (3.2-5.0); Alkaline Phosphatase 123 U/L (45-117); Anion Gap 8 (5-15); BUN 16 mg/dL (7-18); BUN/Creat Ratio 22.3 RATIO (10-20); Chloride 102 mmol/L (98-107); Creatinine, Serum 0.72 mg/dL (0.55-1.02); EST Glomerular Filtration Rate 86 mL/min (>60); Est Glom Filt Rate - Afr Amer 104 mL/min (>60); Estimated Creatinine Clearance 45.42 ml/min; Globulin 5.5 g/dL (2.2-4.2); Glucose 188 mg/dL (74-106); Potassium 3.5 mmol/L (3.5-5.1); Protein, Total 7.6 g/dL (6.4-8.2); Sodium Level 135 mmol/L (136-145)
[2022-07-10 17:16] LABS: Differential Comment SCANNED
--- NOTE | 2022-07-10 18:06 | NURSING ---
DR JOHN BARR
--- NOTE | 2022-07-10 18:19 | NURSING ---
MED SURG JOSUKH RESP FAILURE WITH HYPOXIA, RT LOWER LOBE CONSOLIDATION, EFFUSION
--- NOTE | 2022-07-10 18:40 | PCM.HP.STD ---
HPI - General General Date of Admission: 07/10/22 Date of Service: 07/10/22 Chief Complaint: shortness of breath HPI Narrative GRZEGORZ KEN, is a 67 F who presents with increasing shortness of breath. Patient has been short of breath for over a month but today, patient was going in for her 6 of 10 radiation treatments and when she lied flat, she got very short of breath. Patient was sent to the emergency room. There is concern for a pleural effusion. Patient had a chest x-ray that showed effusion but also possible infiltrate. Patient was started on ceftriaxone and azithromycin. Patient has been coughing but has been nonproductive. Patient has been tachycardic in the emergency room. Does complain of palpitations but then does complain of also midsternal chest pain. Discussed with Dr. Goyal, of oncology. Patient's cancer was found because she had a mass on her left posterior flank. That was biopsied by dermatology that showed poorly differentiated carcinoma that could not be further identified. Patient was subsequently found to have a right mass with encasement of the bronchus in the right upper lobe as well as pulmonary arteries. Patient was also found of had a brain mass. He states that patient is only undergoing radiation treatment at this time as she has not been wish to proceed with chemotherapy, at least at this time. [facility] Medical History (Updated 07/10/22 @ 18:[address] Nick Jaffe, ) COPD (chronic obstructive pulmonary disease) HLD (hyperlipidemia) Migraine Non-small cell lung cancer Osteoporosis Severe protein-calorie malnutrition Home Medications Omeprazole [Prilosec] 20 mg PO DAILY 03/06/16 [History Last Taken Unknown] hydroxyzine pamoate 50 mg capsule 25 - 75 mg PO Q6H PRN PRN Anxiety 03/06/16 [History Last Taken Unknown] multivitamin with folic acid 400 mcg tablet (Thera) 1 tab PO DAILY 03/06/16 [History Last Taken Unknown] paroxetine HCl 40 mg tablet (Paxil) 40 mg PO DAILY 03/06/16 [History Last Taken Unknown] pravastatin 20 mg tablet 20 mg PO QHS 03/06/16 [History Last Taken Unknown] propranolol 20 mg tablet 40 mg PO BID 03/06/16 [History Last Taken Unknown] pregabalin 50 mg capsule 50 mg PO BID 03/24/20 [History Last Taken Unknown] Allergy/AdvReac Type Severity Reaction Status Date / Time propoxyphene [From Darvon] AdvReac Other Verified 07/10/22 16:00 Surgical History nav surgery Social History (Updated 07/10/22 @ 18:[address] Nick Jaffe DO) household members: spouse Smoking Status: Former smoker Smokeless tobacco user: other Electronic Cigarette Use: with nicotine substance use type: does not use ROS ROS Narrative Losing weight. No appetite. Gets chills though worse than her baseline. Mass on her left flank and mass underneath her left buttocks. All review of systems were negative except as mentioned above in the history of present illness and the other review of systems. Vital Signs Vital Signs Vital Signs: 07/10/22 15:58 07/10/22 16:34 07/10/22 16:50 Temperature 36.6 C Temperature Source Temporal Pulse Rate 146 H Respiratory Rate 20 H Respiratory Effort Short of Breath Respiratory Depth Normal Respiratory Pattern Normal Blood Pressure 140/72 H Blood Pressure Mean 94 Pulse Ox 93 92 Oxygen Delivery Method Room Air Room Air Room Air Oxygen Flow Rate (L/min) 07/10/22 17:55 07/10/22 18:02 07/10/22 18:39 Temperature Temperature Source Pulse Rate 134 H 134 H Respiratory Rate 12 22 H Respiratory Effort Respiratory Depth Respiratory Pattern Blood Pressure 143/76 H 121/69 H Blood Pressure Mean 98 86 Pulse Ox 92 92 92 Oxygen Delivery Method Nasal Cannula Nasal Cannula Nasal Cannula Oxygen Flow Rate (L/min) 3 3 3 Weight Weight: 52.7 kg Body Mass Index (BMI) 18.4 Physical Exam Const alert and no apparent distress Constitutional Narrative: Cachectic HEENT normocephalic and head/scalp atraumatic HEENT Narrative: Temporal wasting Eyes Eyes Narrative: No icterus Neck no lymphadenopathy and supple Resp Resp Narrative: Diminished on the right side. Clear on the left Cardio Cardio Narrative: Tachycardic and regular. No murmurs gallops or rubs GI normal to inspection, nondistended, normoactive bowel sounds, soft to palpation, non-tender and non-distended Extremity normal to inspection and no clubbing, cyanosis or edema Skin Skin Narrative: Subcutaneous lesion on left flank that is nontender. Does have a mottled appearance. Patient also does have palpated lesion under her left buttocks. Patient was wearing leggings so did not take direct visual but could be palpated underneath her leggings. Neuro moves all extremities Sensorium / Orientation: awake and alert Psych affect normal Results Lab / Micro Data Attestation: I reviewed the patient's lab results. Lab results narrative: Chest x-ray reviewed and shows right-sided infiltrates versus mass and possible loculated effusion. Result Diagrams: 07/10/22 16:45 07/10/22 16:45 Labs: Laboratory Results - last 24 hr 07/10/22 16:45: WBC 15.3 H, RBC 5.10, Hgb 12.4, Hct 39.2, MCV 76.9 L, MCH 24.3 L, MCHC 31.6 L, RDW Std Deviation 40.5, RDW Coeff of Safia 15.0 H, Plt Count 563 H, MPV 9.1, Immature Gran % (Auto) 0.800, Neut % (Auto) 92.1 H, Lymph % (Auto) 1.8 L, [place] % (Auto) 5.1, Eos % (Auto) 0.0, Baso % (Auto) 0.2, Absolute Neuts (auto) 14.1 H, Absolute Lymphs (auto) 0.28 L, Nucleated RBC % 0, Differential Comment SCANNED 07/10/22 16:45: Sodium 135 L, Potassium 3.5, Chloride 102, Carbon Dioxide 25.0, Anion Gap 8, BUN 16, Creatinine 0.72, Estim Creat Clear Calc 45.42, Est GFR (MDRD) Af Amer 104, Est GFR (MDRD) Non-Af 86, BUN/Creatinine Ratio 22.3 H, Glucose 188 H, Calcium 9.0, Total Bilirubin 0.30, AST 19, ALT 19, Alkaline Phosphatase 123 H, Total Protein 7.6, Albumin 2.1 L, Globulin 5.5 H, Albumin/Globulin Ratio 0.4 L 07/10/22 16:45: Lactic Acid 2.0 ABG Data ABG results: ABG 07/10/22 16:51 Specimen Type APARNA VBG pH 7.48 H VBG pO2 43 H VBG HCO3 27 H VBG Total CO2 28 VBG O2 Sat (Calc) 82 H VBG Base Excess 3 POC Mix VBG pCO2 Pt Tmp 35.8 L Rhythm Strip Rhythm Strip: Sinus Tach Rate: 144 Ectopy: None Radiology Impression Chest X-Ray 07/10/22 16:50 IMPRESSION: Right lower lobe consolidation and pleural effusion.. Electronically Signed: Ravindra DO Ricki at 17:19 EDT , Assessment & Plan Assessment/Plan (1) Right lower lobe consolidation: PLAN: Concern is for pneumonia but cannot rule out loculated effusion or her known lung mass. Check CTA to better evaluate. Even though this is effusion, there was mention of encasement of the pulmonary arteries so would like to have a better visualization with the CT imaging for that. In the meantime, pulmonary toilet, antibiotics with ceftriaxone and azithromycin Check sputum culture, if able, check urinary antigens for Streptococcus and Legionella (2) Non-small cell lung cancer: QUALIFIERS: Laterality: right Qualified Code(s): C34.91 - Malignant neoplasm of unspecified part of right bronchus or lung PLAN: Discussed with Dr. Goyal and stated that the biopsies were undifferentiated but appeared that the primary source was from her lung. Patient has been undergoing radiation treatment She has not desired to undergo chemotherapy, at least at this point in time. There is concerned about how she may tolerate chemotherapy she presented relatively poor performance status. Patient has known brain metastasis as well as subcutaneous lesions on her left posterior flank as well as her left buttocks. I do not know where the rest of her metastasis are, if she does have some. We will request records from [facility] (3) Pleural effusion, right: PLAN: CAT scan to further identify. It does not appear to be free-flowing effusion, if no effusion is present and may be very well loculated. Get the CAT scan to better identify. (4) Sinus tachycardia: PLAN: Appears to be sinus. Patient does take propranolol and will continue. Patient be monitored on telemetry Check 2D echocardiogram (5) Severe protein-calorie malnutrition: PLAN: Consult nutrition Start supplements with Ensure PLAN: Plan VTE prophylaxis: SCDs for now in case patient does require a thoracentesis. CODE STATUS: Addressed with the patient. Patient wishes to be full code. Case discussed with the patient's daughters at bedside. Charges/Coding Visit Charges Inpatient E&M: 73722 Init Hosp L3
--- NOTE | 2022-07-10 19:24 | ECHOD_ITS ---
Version 2 Reason For Study: TACHYCARDIA Procedure This was a 2D Doppler, Color Flow transthoracic echocardiogram. The study was technically difficult. Study was ended early due to patient intolerance. Exam performed portable in patient room. Left Ventricle Normal LV size. Left ventricular systolic function is normal. Stage 1 diastolic dysfunction. The left ventricular ejection fraction is 55 %. No regional wall motion abnormalities noted. Right Ventricle Normal RV size. Normal systolic function. Atria Normal left atrium. Normal right atrium. Tricuspid Valve The tricuspid valve is not well visualized. Great Vessels Normal aortic root. The pulmonary artery is normal size. Normal inferior vena cava. Pericardium/Pleural No pericardial effusion. MMode/2D Measurements & Calculations LAV(MOD-sp4): 18.7 ml SV(MOD-sp4): 24.1 ml LVAd ap4: 21.1 cm2 LVLd ap4: 7.9 cm EDV(MOD-sp4): 46.4 ml EDV(sp4-el): 48.1 ml LVAs ap4: 13.4 cm2 LVLs ap4: 7.2 cm ESV(MOD-sp4): 22.3 ml ESV(sp4-el): 21.4 ml EF(MOD-sp4): 51.9 % EF(sp4-el): 55.6 % SV(sp4-el): 26.8 ml LA A4 area: 10.3 cm2 RA A4 area: 10.5 cm2 Doppler Measurements & Calculations MV E max rohit: 53.6 cm/sec Lat Peak E' Rohit: 11.2 cm/sec Med Peak E' Rohit: 6.6 cm/sec MV A max rohit: 83.7 cm/sec E/E' lat: 4.8 E/E' med: 8.2 MV E/A: 0.64 MV V2 max: 193.9 cm/sec Ao V2 max: 116.7 cm/sec LV V1 max: 117.6 cm/sec MV max P.4 mmHg Ao max P.5 mmHg LV V1 max P.5 mmHg MV V2 mean: 151.2 cm/sec Ao V2 mean: 81.8 cm/sec LV V1 mean P.5 mmHg MV mean P.0 mmHg Ao mean P.0 mmHg LV V1 mean: 71.5 cm/sec MV V2 VTI: 49.2 cm Ao V2 VTI: 18.8 cm LV V1 VTI: 20.1 cm AV (velocity ratio): 1.1 PA V2 max: 85.5 cm/sec PA V2 mean: 63.8 cm/sec ECHO/Echo Complete Interpretation Summary Normal LV size. Left ventricular systolic function is normal. Stage 1 diastolic dysfunction. Study abbreviated due to patient's noncooperation The left ventricular ejection fraction is 55 %. Ordering Physician: Nick Jaffe Referring Physician: KLEVER GARCIA Performed By: Kristyn Ladd RCS
--- NOTE | 2022-07-10 19:32 | CT_ITS ---
STUDY: CTA CHEST REASON FOR EXAM: Female, 67 years old. pleural effusion. lung mass. RADIATION DOSAGE (If Supplied By Facility): CTDIvol = ( 4.42 ) mGy, DLP = ( 157.35 ) mGycm TECHNIQUE: The examination was performed with the intravenous administration of 100ML OF ISOVUE 370. Post-processing of the angiographic images was performed, with multiplanar reformation and 3D reconstruction. Individualized dose optimization techniques were used for this CT. COMPARISON: None. FINDINGS: Normal enhancement of the main pulmonary artery and right and left pulmonary arteries. Normal enhancement of the bilateral peripheral pulmonary arteries. There is no demonstrated pulmonary embolism. Normal thoracic aorta and visualized great vessels. There is no demonstrated aortic dissection. Pericardium perfusion. Possible subcarinal adenopathy. Normal visualized trachea. Right upper lobe atelectasis/paratracheal mass. There is wall thickening of the right bronchioles. Moderate right pleural effusion with basilar infiltrate/atelectasis. Collapse of the right middle lobe bronchioles. Consolidation/atelectasis of the right middle lobe. Right hilar/perihilar mass cannot be excluded. Normal chest wall structures. Normal osseous structures. Normal visualized upper abdomen. CT/CTA Chest W/WO Contrast IMPRESSION: No demonstrated pulmonary embolism or arterial dissection. Pericardium perfusion. Possible subcarinal adenopathy. There is wall thickening of the right bronchioles. Moderate right pleural effusion with basilar infiltrate/atelectasis. Right upper lobe atelectasis/paratracheal mass. Collapse of the right middle lobe bronchioles. Consolidation/atelectasis of the right middle lobe. Right hilar/perihilar mass cannot be excluded. Electronically Signed: Ravindra Robison DO at 20:16 EDT ,
--- NOTE | 2022-07-10 20:38 | ED.RN ---
pt c/o IV hurting. no sign of infiltration IV flushes and great blood return. offered to move IV to different location. pt requested IV moved. new IV placed tolerated well
[2022-07-10 20:46] LABS: Reflex Lactate? Y
--- NOTE | 2022-07-10 20:58 | ED.RN ---
pt and family educated on hospital visiting hours. pt daughter upset, crying and frustrated with staff stating if my mother dies and he(her father) isn't here I'm gonna be pissed. It's not right you do this to people. ED lens blocker updated attempts to call to PCU and discuss but no answer. Family went with pt to PCU.
--- NOTE | 2022-07-10 21:51 | EKG12_ITS ---
Test Reason : RHY Blood Pressure : / mmHG Vent. Rate : 132 BPM Atrial Rate : 132 BPM P-R Int : 136 ms QRS Dur : 076 ms QT Int : 304 ms P-R-T Axes : 077 062 066 degrees QTc Int : 450 ms Sinus tachycardia Nonspecific ST abnormality Abnormal ECG When compared with ECG of 10-JUL-2022 16:14, MANUAL COMPARISON REQUIRED, DATA IS UNCONFIRMED Confirmed by JUAN MOTA, YOHANA ([id number]), film editor HARSHAD CHRISTOPHER ([id number]) on 07/12/2022 9:59:04 AM Referred By: Confirmed By:YOHANA MARTINEZ MD
[2022-07-10] MEDS: Propranolol 40 MG Tablet PO (22:44)
[2022-07-11] VITALS (9 sets, daily range): BP systolic 114–120; BP diastolic 52–69; PULSE 69–107; RESP 16–18; TEMP 36.6–36.9; O2SAT 92–97
[2022-07-11 06:04] LABS: Absolute Lymphocyte Count 0.71 X10^3/uL (0.83-4.51); Absolute Neutrophil Count 11.1 X10^3/uL (2.0-7.7); Basophil# 0.03 X10^3/uL; Basophil% 0.2 % (0-1); Eosinophil# 0.05 X10^3/uL; Eosinophils% 0.4 % (0-5); Hematocrit 33.8 % (37-47); Lymphocyte # 0.71 X10^3/ul (0.83-4.51); Lymphocyte % 5.4 % (19-41); Mean Corp Hgb Conc 32.5 g/dL (32-36); Mean Corpuscular Hgb 25.1 pg (27.0-32.0); Mean Corpuscular Volume 77.2 fL (81-99); Mean Platelet Vol. 8.8 fl (6.2-12.0); Monocyte% 8.4 % (0-10); NRBC Flagged by Analyzer 0 % (0-5); Neutrophil # 11.14 X10^3/uL (2.7-7.7); Neutrophil % 84.8 % (47-70); Platelet Count 474 K/mm3 (150-450); RBC Distribution Width CV 15.1 % (11.6-14.6); RBC Distribution Width SD 41.4 fl (35.1-43.9); Red Blood Count 4.38 M/mm3 (4.2-5.4); White Blood Count 13.1 K/mm3 (4.4-11.0)
[2022-07-11 06:55] LABS: ALB/GLOB Ratio 0.4 RATIO (0.9-2.4); AST(SGOT) 20 U/L (15-37); Alanine Aminotransfer ALT/SGPT 18 U/L (13-56); Albumin, Serum 1.8 g/dL (3.2-5.0); Alkaline Phosphatase 101 U/L (45-117); Anion Gap 7 (5-15); BUN 13 mg/dL (7-18); BUN/Creat Ratio 30.2 RATIO (10-20); Calcium,Total 8.8 mg/dL (8.5-10.1); Chloride 101 mmol/L (98-107); Creatinine, Serum 0.43 mg/dL (0.55-1.02); EST Glomerular Filtration Rate 156 mL/min (>60); Est Glom Filt Rate - Afr Amer 188 mL/min (>60); Globulin 4.6 g/dL (2.2-4.2); Glucose 105 mg/dL (74-106); Potassium 3.6 mmol/L (3.5-5.1); Protein, Total 6.4 g/dL (6.4-8.2); Sodium Level 135 mmol/L (136-145)
[2022-07-11] MEDS: Ipratropium/Albuterol Sulfate 3 ML AMPUL.NEB INHALATION ×3 (06:57→20:18)
--- NOTE | 2022-07-11 08:13 | PN.HOSP_ITS ---
Reason for Visit Reason for Visit: Diagnoses Malignant neoplasm of unspecified part of right bronchus or lung (07/10/22) Unspecified severe protein-calorie malnutrition (07/10/22) Lobar pneumonia, unspecified organism (07/10/22) Pleural effusion, not elsewhere classified (07/10/22) Tachycardia, unspecified (07/10/22) Subjective Subjective No new events. Objective Data Objective Data Vital Signs: Vital Signs Temp Pulse Resp BP Pulse Ox O2 Del Method O2 Flow Rate 36.7 C 85 18 116/52 L 93 Nasal Cannula 3 07/11/22 02:00 07/11/22 02:00 07/11/22 02:00 07/11/22 02:00 07/11/22 02:00 07/11/22 02:03 07/11/22 02:03 Oxygen Flow Rate (L/min) 3 Oxygen Delivery Method Nasal Cannula Weight: 55.7 kg Body Mass Index (BMI) 19.8 Intake & Output: Intake and Output for Last 24 Hours 07/09/22 07/10/22 07/11/22 23:59 23:59 23:59 Intake Total 665 / 665 0 / 0 Balance 665 / 665 0 / 0 Lab / Micro Data Result Diagrams: 07/11/22 05:42 07/11/22 05:42 Labs: Laboratory Results - last 24 hr 07/10/22 16:45: WBC 15.3 H, RBC 5.10, Hgb 12.4, Hct 39.2, MCV 76.9 L, MCH 24.3 L , MCHC 31.6 L, RDW Std Deviation 40.5, RDW Coeff of Safia 15.0 H, Plt Count 563 H, MPV 9.1, Immature Gran % (Auto) 0.800, Neut % (Auto) 92.1 H, Lymph % (Auto) 1.8 L, [place] % (Auto) 5.1, Eos % (Auto) 0.0, Baso % (Auto) 0.2, Absolute Neuts (auto) 14.1 H, Absolute Lymphs (auto) 0.28 L, Nucleated RBC % 0, Differential Comment SCANNED 07/10/22 16:45: Sodium 135 L, Potassium 3.5, Chloride 102, Carbon Dioxide 25.0, Anion Gap 8, BUN 16, Creatinine 0.72, Estim Creat Clear Calc 45.42, Est GFR (MDRD) Af Amer 104, Est GFR (MDRD) Non-Af 86, BUN/Creatinine Ratio 22.3 H, Glucose 188 H, Calcium 9.0, Total Bilirubin 0.30, AST 19, ALT 19, Alkaline Phosphatase 123 H, Total Protein 7.6, Albumin 2.1 L, Globulin 5.5 H, Albumin/Globulin Ratio 0.4 L 07/10/22 16:45: Lactic Acid 2.0 07/10/22 22:00: Lactic Acid 2.0 07/11/22 05:42: WBC 13.1 H, RBC 4.38, Hgb 11.0 L, Hct 33.8 L, MCV 77.2 L, MCH 25.1 L, MCHC 32.5, RDW Std Deviation 41.4, RDW Coeff of Safia 15.1 H, Plt Count 474 H, MPV 8.8, Immature Gran % (Auto) 0.800, Neut % (Auto) 84.8 H, Lymph % (Auto) 5.4 L, [place] % (Auto) 8.4, Eos % (Auto) 0.4, Baso % (Auto) 0.2, Absolute Neuts (auto) 11.1 H, Absolute Lymphs (auto) 0.71 L, Nucleated RBC % 0 07/11/22 05:42: Sodium 135 L, Potassium 3.6, Chloride 101, Carbon Dioxide 27.0, Anion Gap 7, BUN 13, Creatinine 0.43 L, Estim Creat Clear Calc 48.00, Est GFR (MDRD) Af Amer 188, Est GFR (MDRD) Non-Af 156, BUN/Creatinine Ratio 30.2 H, Glucose 105, Calcium 8.8, Total Bilirubin 0.30, AST 20, ALT 18, Alkaline Phosphatase 101, Total Protein 6.4, Albumin 1.8 L, Globulin 4.6 H, Albumin/Globulin Ratio 0.4 L ABG Data ABG results: ABG 07/10/22 16:51 Specimen Type APARNA VBG pH 7.48 H VBG pO2 43 H VBG HCO3 27 H VBG Total CO2 28 VBG O2 Sat (Calc) 82 H VBG Base Excess 3 POC Mix VBG pCO2 Pt Tmp 35.8 L Radiography Diagnostic Testing: Radiology Impression Chest X-Ray 07/10/22 16:50 IMPRESSION: Right lower lobe consolidation and pleural effusion.. Electronically Signed: Ravindra DO Ricki at 17:19 EDT , Chest CTA 07/10/22 19:32 IMPRESSION: No demonstrated pulmonary embolism or arterial dissection. Pericardium perfusion. Possible subcarinal adenopathy. There is wall thickening of the right bronchioles. Moderate right pleural effusion with basilar infiltrate/atelectasis. Right upper lobe atelectasis/paratracheal mass. Collapse of the right middle lobe bronchioles. Consolidation/atelectasis of the right middle lobe. Right hilar/perihilar mass cannot be excluded. Electronically Signed: Ravindrastpehanie Robison DO at 20:16 EDT , Rhythm Strip Rhythm Strip: Sinus Tach Rate: 144 Ectopy: None Physical Exam Const alert and no apparent distress HEENT head/scalp atraumatic Resp Resp Narrative: diminished breath sounds on right Cardio regular rate, regular rhythm, S1 normal heart sound and S2 normal heart sound GI normal to inspection, nondistended, normoactive bowel sounds, soft to palpation, non-tender and non-distended Extremity normal to inspection Assessment & Plan Assessment/Plan (1) Right lower lobe consolidation: PLAN: Concern is for pneumonia but cannot rule out loculated effusion or her known lung mass. CTA shows No PE/dissection, wall thickening of right bronchioles, moderate right pleural effusion wbasilar infiltrate/atx, RUL ATX/paratracheal mas, collapse of RML In the meantime, pulmonary toilet, antibiotics with ceftriaxone and azithromycin Check sputum culture, if able, check urinary antigens for Streptococcus and Legionella (2) Non-small cell lung cancer: QUALIFIERS: Laterality: right Qualified Code(s): C34.91 - Malignant neoplasm of unspecified part of right bronchus or lung PLAN: Discussed with Dr. Goyal and stated that the biopsies were undifferentiated but appeared that the primary source was from her lung. Patient has been undergoing radiation treatment She has not desired to undergo chemotherapy, at least at this point in time. There is concerned about how she may tolerate chemotherapy she presented relatively poor performance status. Patient has known brain metastasis as well as subcutaneous lesions on her left posterior flank as well as her left buttocks. I do not know where the rest of her metastasis are, if she does have some. We will request records from [facility] (3) Pleural effusion, right: PLAN: Seen on CT given symptomatology, attempt thoracentesis suspect malignant given known NSCLC (4) Sinus tachycardia: PLAN: Appears to be sinus. Patient does take propranolol and will continue. Patient be monitored on telemetry Check 2D echocardiogram (5) Severe protein-calorie malnutrition: PLAN: Consult nutrition Start supplements with Ensure PLAN: Plan VTE prophylaxis: SCDs for now in case patient does require a thoracentesis. CODE STATUS: Addressed with the patient. Patient wishes to be full code. Prognosis: guarded. Charges/Coding Visit Charges Inpatient E&M: 23698 Subs Hosp L2
[2022-07-11] MEDS: Ensure Plus High Protein 120 ML LIQUID PO ×3 (08:49→17:31)
[2022-07-11 09:14] LABS: International Normalized Ratio 1.2; Prothrombin Time (Protime)PT. 14.5 SECONDS (11.7-14.9)
[2022-07-11 09:32] LABS: LDH 143 U/L (84-246)
[2022-07-11] MEDS: 0.9% Saline Lock 10 ML Syringe IV (09:33)
[2022-07-11] MEDS: Propranolol 40 MG Tablet PO ×2 (10:29→21:46)
--- NOTE | 2022-07-11 10:30 | CASEMGMT ---
LAW NUNEZ Face to Face with patient for initial transition planning/care coordination assessment. LAW NUNEZ introduced self and role at [facility]. Patient lying in bed, alert and oriented, family at bedside. Patient willing to participate in assessment and is able to answer all questions appropriately. Care providers, pharmacy, and demographics verified. Patient wishes to discharge home with possible HHC pending progress with therapy. Patient states she has no further needs or concerns at this time. CM to follow for discharge planning needs that may arise. PCP: Sun Powers Specialists: Jyotsna, oncologist Preferred Pharmacy: [facility] Insurance: [facility] Prescription Benefit: yes Living Will/HPOA: none LNOK: , daughters Living Arrangements: Patient lives with in a single story apartment with 2 steps to enter. and family have been assisting patient with ADLs Transportation: DME/HHC: Patient has shower chair, cane, grab bars, and pulse ox at home. Will monitor for home oxygen. No preferences for DME, reviewed agencies and agreeable to [employer]. No previous HHC or SNF. LAW NUNEZ discussed Palliative Care with patient and interest in referral. Hospitalist updated and order received for palliative consult. LAW NUNEZ to provided patient with list of HHC agencies. Disposition Plan: Patient to discharge home with family support and follow-up plans in place. Christina YARBROUGH, RN, CM
[2022-07-11] MEDS: Acetaminophen 325 MG Tablet 650 MG PO (15:52)
--- NOTE | 2022-07-11 19:13 | NURSING ---
reviewed and agree with sn Sobia with sn with patient
[2022-07-12] VITALS (11 sets, daily range): BP systolic 87–165; BP diastolic 36–61; PULSE 88–99; RESP 16–20; TEMP 36.1–36.8; O2SAT 91–96
--- NOTE | 2022-07-12 | IMM_PTH ---
PATIENT: GRZEGORZ KEN LOC: [facility] U#:[id number] AGE/SX: 67/F ROOM: [facility] RE07/10/[address]: Dr. Nick Jaffe DO : 1955 BED: 1 DIS: 07/16/2022 SPEC #: [id number] RECD: 07/13/22 13:58 STATUS: SOULeia REQ #: [id number] GRUPO: 07/12/22 00:[address]: Nick Jaffe DEPT: IMMUNOHISTOCHEMISTRY RECD BY: Eun Hernandez ENTERED: 07/13/22 14:00 SP TYPE: IMMUNO OTHR DR: Dr. Sun Powers Tissues: THORACIC FLUID Procedures: RCC (add) NAPSIN A (add) Pasquale Ret (add) CK20 (add) CK5-6 (add) CK7 (add) CK8 (add) HEP PAR (add) WI (add) TTF1 (add) Vimentin (add) Pankeratin (add) P40 (add) CD68 (ADD) ER (initial) PHYSICIAN & [place] [phone] SPECIMEN INFORMATION: Tissue Source: Thoracentesis fluid Clinical Info: Right pleural effusion Specimen Number: [id number] CPT code: 70828, 93774 x14 METHODOLOGY: Deparaffinized sections of prefer/formalin-fixed tissue or PAP/DQ stained slides are incubated with monoclonal/polyclonal antibodies/oligonucleotide probes. Localization is made via biotin free immunoperoxidase method. Appropriate controls are performed and reacted as expected. Results on target cell population are indicated in the following table: RESULTS: ANTIBODY / CLONE RESULT ER (6F11) negative WI (1E2) negative AE1-3 (AE1/AE3/PCK26) positive CK7 (OV-TL12/30) positive CK8 (18mwguE46) positive CK20 (KS20.8) negative Vimentin (V9) negative CD68 (KP-1) negative TTF-1 (8G7G3/1) negative Napsin A (Rabbit Polyclonal) positive HepPar (OCh1E5) positive RCC (PN-15) negative CALRET (polyclonal) negative CK5-6 (D5 & 1684) negative P40 (BC28) negative These tests were developed and their performance characteristics determined by [facility]. They may not have been cleared or approved by the U.S. Food and Drug Administration. The FDA has determined that such clearance or approval is not necessary. The above immunohistochemical/dualISH markers are ordered and reviewed by the Pathologist. INTERPRETATION: Thoracentesis (cell block): Malignant cells present derived from poorly differentiated non-small cell carcinoma, favor adenocarcinoma. See comment. RACHEL:isidro 07/14/2022 Comment: IHC profile is noncontributory for primary site of origin, may represent but not limited to upper gastrointestinal tract, lung or pancreas primary. Clinical correlation is necessary.
--- NOTE | 2022-07-12 | FLU_PTH ---
PATIENT: GRZEGORZ KEN LOC: [facility] U#:[id number] AGE/SX: 67/F ROOM: [facility] RE07/10/[address]: Dr. Nick Jaffe DO : 1955 BED: 1 DIS: 07/16/2022 SPEC #: [id number] RECD: 07/12/22 08:50 STATUS: RACHELLE PRISCILA #: [id number] GRUPO: 07/12/22 00:[address]: Nick Jaffe DEPT: CYTOLOGY RECD BY: Paola Pozo ENTERED: 07/12/22 09:39 SP TYPE: Fluid OTHR DR: Dr. Sun Powers Tissues: THORACIC FLUID Procedures: Special Stain Group II Mucicarmine Stain (control) Surgery Specimen Level IV Cytospin Fluid HEADER OPERATION: Ultrasound-guided thoracentesis right PRE-OP DIAGNOSIS: Right pleural effusion TISSUE SUBMITTED: Thoracentesis fluid for cytology DIAGNOSIS CYTOLOGY Thoracentesis fluid for cytology (cytospin and cell block): Malignant cells present derived from non-small cell carcinoma, favor ___ See comment. SJ:isidro 07/13/2022 COMMENT Mucin stain with matched control is used in the evaluation of the specimen. Tumor cells are positve for mucin. Immunohistochemistry ([id number]) supports the above diagnosis. IHC profile is noncontributory for primary site of origin, may represent but not limited to upper gastrointestinal tract, lung or pancreas primary. Clinical correlation is necessary. Molecular studies on the tumor can be performed if clinically indicated. Please notify the laboratory if they are needed. Case has been reviewed in consultation with Dr. Zuniga who concurs with the above diagnosis. IDC:AM CYTOLOGY STUDY Slides are reviewed. CYTOLOGY GROSS Received is 85 ml of yellow cloudy fluid labeled with the patient's name and and designated per the requisition as thoracentesis. Submitted for cytology preparation including cell block. / isidro 07/12/2022 TC:0 CPT: 21756, 00214, 31107
--- NOTE | 2022-07-12 | FLU_PTH ---
PATIENT: GRZEGORZ KEN LOC: [facility] U#:[id number] AGE/SX: 67/F ROOM: [facility] RE07/10/[address]: Dr. Nick Jaffe DO : 1955 BED: 1 DIS: 07/16/2022 SPEC #: [id number] RECD: 07/12/22 08:50 STATUS: RACHELLE PRISCILA #: [id number] GRUPO: 07/12/22 00:[address]: Nick Jaffe DEPT: CYTOLOGY RECD BY: Paola Pozo ENTERED: 07/12/22 09:39 SP TYPE: Fluid OTHR DR: Dr. Sun Powesr Tissues: THORACIC FLUID Procedures: Special Stain Group II Mucicarmine Stain (control) Surgery Specimen Level IV Cytospin Fluid HEADER OPERATION: Ultrasound-guided thoracentesis right PRE-OP DIAGNOSIS: Right pleural effusion TISSUE SUBMITTED: Thoracentesis fluid for cytology DIAGNOSIS CYTOLOGY Thoracentesis fluid for cytology (cytospin and cell block): Malignant cells present derived from non-small cell carcinoma. See comment. SJ:isidro 07/13/2022 SJ:isidro 07/17/2022 COMMENT Mucin stain with matched control is used in the evaluation of the specimen. Tumor cells are positive for mucin. Immunohistochemistry ([id number]) supports the above diagnosis. IHC profile is noncontributory for primary site of origin, may represent but not limited to upper gastrointestinal tract, lung or pancreas primary. Clinical correlation is necessary. Molecular studies on the tumor can be performed if clinically indicated. Please notify the laboratory if they are needed. Case has been reviewed in consultation with Dr. Zuniga who concurs with the above diagnosis. IDC:AM CYTOLOGY STUDY Slides are reviewed. CYTOLOGY GROSS Received is 85 ml of yellow cloudy fluid labeled with the patient's name and and designated per the requisition as thoracentesis. Submitted for cytology preparation including cell block. / isidro 07/12/2022 TC:0 CPT: 59258, 97824, 87016
[2022-07-12 05:47] LABS: Absolute Lymphocyte Count 0.51 X10^3/uL (0.83-4.51); Absolute Neutrophil Count 11.6 X10^3/uL (2.0-7.7); Basophil# 0.03 X10^3/uL; Basophil% 0.2 % (0-1); Eosinophil# 0.05 X10^3/uL; Eosinophils% 0.4 % (0-5); Hematocrit 33.2 % (37-47); Hemoglobin 10.5 g/dL (12.0-15.0); Lymphocyte # 0.51 X10^3/ul (0.83-4.51); Lymphocyte % 3.8 % (19-41); Mean Corp Hgb Conc 31.6 g/dL (32-36); Mean Corpuscular Hgb 24.9 pg (27.0-32.0); Mean Corpuscular Volume 78.9 fL (81-99); Mean Platelet Vol. 8.9 fl (6.2-12.0); Monocyte# 1.04 X10^3/uL; Monocyte% 7.8 % (0-10); NRBC Flagged by Analyzer 0 % (0-5); Neutrophil # 11.59 X10^3/uL (2.7-7.7); Neutrophil % 86.5 % (47-70); POSITIVE DIFFERENTIAL YES; Platelet Count 445 K/mm3 (150-450); RBC Distribution Width SD 42.8 fl (35.1-43.9); Red Blood Count 4.21 M/mm3 (4.2-5.4); White Blood Count 13.4 K/mm3 (4.4-11.0)
[2022-07-12 06:01] LABS: Differential Indicated SCAN CRITERIA MET
[2022-07-12 06:36] LABS: Anion Gap 7 (5-15); BUN 12 mg/dL (7-18); BUN/Creat Ratio 31.2 RATIO (10-20); Calcium,Total 8.7 mg/dL (8.5-10.1); Chloride 100 mmol/L (98-107); Creatinine, Serum 0.38 mg/dL (0.55-1.02); EST Glomerular Filtration Rate 177 mL/min (>60); Est Glom Filt Rate - Afr Amer 215 mL/min (>60); Glucose 108 mg/dL (74-106); Potassium 3.4 mmol/L (3.5-5.1); Sodium Level 133 mmol/L (136-145)
[2022-07-12 06:42] LABS: Differential Comment SCANNED
[2022-07-12] MEDS: Ipratropium/Albuterol Sulfate 3 ML AMPUL.NEB INHALATION ×3 (07:25→20:06)
--- NOTE | 2022-07-12 07:55 | RAD_ITS ---
STUDY: X-RAY CHEST REASON FOR EXAM: Female, 67 years old. PNEUMOTHORAX -- IMMEDIATELY POST THORACENTESIS TECHNIQUE: AP inspiration and expiration views. COMPARISON: Comparison is made with prior study dated July 10, 2022. FINDINGS: The patient is status post right thoracentesis. There is evidence of a small right apical pneumothorax. The patient is asymptomatic. Residual pleural-parenchymal changes are seen at the right lung base. RAD/Chest Insp/Exp 2 View IMPRESSION: Status post right thoracentesis. Small right apical pneumothorax. The patient is asymptomatic. Electronically Signed: Anmol Lopez MD at 9:04 EDT ,
--- NOTE | 2022-07-12 08:05 | PN.HOSP_ITS ---
Reason for Visit Reason for Visit: Diagnoses Malignant neoplasm of unspecified part of right bronchus or lung (07/10/22) Unspecified severe protein-calorie malnutrition (07/10/22) Lobar pneumonia, unspecified organism (07/10/22) Pleural effusion, not elsewhere classified (07/10/22) Tachycardia, unspecified (07/10/22) Subjective Subjective Breathing better post thoracentesis. Objective Data Objective Data Vital Signs: Vital Signs Temp Pulse Resp BP Pulse Ox O2 Del Method O2 Flow Rate 36.1 C L 95 16 112/61 93 Nasal Cannula 3 07/12/22 03:00 07/12/22 03:00 07/12/22 03:00 07/12/22 03:00 07/12/22 03:00 07/12/22 03:00 07/12/22 03:00 Oxygen Flow Rate (L/min) 3 Oxygen Delivery Method Nasal Cannula Weight: 55.7 kg Body Mass Index (BMI) 19.8 Intake & Output: Intake and Output for Last 24 Hours 07/10/22 07/11/22 07/12/22 23:59 23:59 23:59 Intake Total 665 / 665 840.75 / 840.75 Output Total 100 / 100 Balance 665 / 665 840.75 / 740.75 -100 / -100 Medical Nutrition Assessment Dietitian: Malnutrition Criteria Met Start: 07/11/22 15:47 Freq: Status: Active Protocol: Document 07/11/22 15:47 AG (Rec: 07/11/22 15:47 AG [id number]) Nutrition Malnutrition Evidence of Malnutrition Exists Yes Malnutrition (severe): Chronic Evidenced By Suboptimal Energy Intake ( Severe),Weight Loss (Severe), Physical Changes (Severe) Clinical Problem Chronic Disease or Condition Related Malnutrition Etiology severe, chronic malnutrition related to inadequate energy intake w/ increased energy needs Signs/Symptoms as evidenced by unintentional wt loss of 19.2#/14% x 6 months; estimated PO intake meeting <75% of estimated energy needs > 3 months; Severe muscle wasting/fat loss evident per phyiscal exam in orbital, clavicle, acromion, and temporal areas; BMI 19.8 Status Active Problem Recommendation Dietitian Recommendations/Changes continue regular diet; ensure plus high protein 120mL 4x/day and magic cup w/ dinner d/t evidence of malnutrition Lab / Micro Data Result Diagrams: 07/12/22 05:33 07/12/22 05:33 Labs: Laboratory Results - last 24 hr 07/11/22 08:55: PT 14.5, INR 1.2 07/11/22 08:55: Lactate Dehydrogenase 143 07/12/22 05:33: WBC 13.4 H, RBC 4.21, Hgb 10.5 L, Hct 33.2 L, MCV 78.9 L, MCH 24.9 L, MCHC 31.6 L, RDW Std Deviation 42.8, RDW Coeff of Safia 15.0 H, Plt Count 445, MPV 8.9, Immature Gran % (Auto) 1.300 H, Neut % (Auto) 86.5 H, Lymph % (Aut o) 3.8 L, [place] % (Auto) 7.8, Eos % (Auto) 0.4, Baso % (Auto) 0.2, Absolute Neuts (auto) 11.6 H, Absolute Lymphs (auto) 0.51 L, Nucleated RBC % 0, Differential Comment SCANNED 07/12/22 05:33: Sodium 133 L, Potassium 3.4 L, Chloride 100, Carbon Dioxide 26.0, Anion Gap 7, BUN 12, Creatinine 0.38 L, Estim Creat Clear Calc 48.00, Est GFR (MDRD) Af Amer 215, Est GFR (MDRD) Non-Af 177, BUN/Creatinine Ratio 31.2 H, Glucose 108 H, Calcium 8.7 Micro: Microbiology 07/11/22 15:48 Urine, Clean Catch Legionella Antigen - Final 07/11/22 15:48 Urine, Clean Catch Streptococcus pneumoniae Antigen (M - Final Radiography Diagnostic Testing: Radiology Impression Echocardiogram 07/10/22 19:24 Interpretation Summary Normal LV size. Left ventricular systolic function is normal. Stage 1 diastolic dysfunction. Study abbreviated due to patient's noncooperation The left ventricular ejection fraction is 55 %. Ordering Physician: Nick Jaffe Referring Physician: KLEVER GARCIA Performed By: Kristyn Ladd RCS Rhythm Strip Rhythm Strip: Sinus Tach Rate: 144 Ectopy: None Physical Exam Const alert and no apparent distress Constitutional Narrative: cachectic. Resp Resp Narrative: diminished on right. coarse on left. Cardio regular rate, regular rhythm, S1 normal heart sound and S2 normal heart sound GI normal to inspection, nondistended, normoactive bowel sounds, soft to palpation, non-tender and non-distended Extremity normal to inspection and full ROM Neuro oriented x3, CN's II-XII intact bilaterally and moves all extremities Assessment & Plan Assessment/Plan (1) Right lower lobe consolidation: PLAN: Concern is for pneumonia but cannot rule out loculated effusion or her known lung mass. CTA shows No PE/dissection, wall thickening of right bronchioles, moderate right pleural effusion wbasilar infiltrate/atx, RUL ATX/paratracheal mas, collapse of RML In the meantime, pulmonary toilet, antibiotics with ceftriaxone and azithromycin Strep and legionella antigens negative SCx pending (2) Non-small cell lung cancer: QUALIFIERS: Laterality: right Qualified Code(s): C34.91 - Malignant neoplasm of unspecified part of right bronchus or lung PLAN: Discussed with Dr. Goyal and stated that the biopsies were undifferentiated but appeared that the primary source was from her lung. Patient has been undergoing radiation treatment She has not desired to undergo chemotherapy, at least at this point in time. There is concerned about how she may tolerate chemotherapy she presented relatively poor performance status. Patient has known brain metastasis as well as subcutaneous lesions on her left posterior flank as well as her left buttocks. I do not know where the rest of her metastasis are, if she does have some. We will request records from [facility] (3) Pleural effusion, right: PLAN: Seen on CT given symptomatology, thoracentesis 07/12 with removal of 1000cc suspect malignant given known NSCLC Exudative. Likely due to malignancy. (4) Sinus tachycardia: PLAN: Improved Appears to be sinus. Patient does take propranolol and will continue. Patient be monitored on telemetry Check 2D echocardiogram (5) Severe protein-calorie malnutrition: PLAN: Consult nutrition Start supplements with Ensure (6) Pneumothorax: PLAN: Iatrogenic from thoracentesis Follow up xray. No need for CT at this time. PLAN: Plan VTE prophylaxis: SCDs for now in case patient does require a thoracentesis. CODE STATUS: Addressed with the patient. Patient wishes to be full code. Prognosis: guarded. Charges/Coding Visit Charges Inpatient E&M: 12727 Subs Hosp L2
--- NOTE | 2022-07-12 08:30 | US_ITS ---
PROCEDURE: ULTRASOUND GUIDED THORACENTESIS. DATE: July 12, 2022.. INDICATION: Female, 67 years old. Right pleural effusion. PHYSICIAN: Anmol Lopez M.D. PROCEDURE: The risks, benefits, and alternatives to the procedure were explained to the patient. The specific risks of bleeding, infection, and pneumothorax requiring chest tube insertion were discussed and accepted. Written informed consent was obtained. Ultrasonographic evaluation of the right lower pleural space was carried out. An adequate pocket was identified. The patient was placed in the sitting, upright position. The overlying skin was prepped and draped in sterile fashion. 1% lidocaine was administered subcutaneously for local anesthesia. Under ultrasound guidance, a 5 Georgian thoracentesis needle/catheter system was advanced into the right posterior lower pleural fluid collection. Approximately 1000 mL of claudia-colored fluid was drained. The catheter was removed, and a sterile dressing was applied. A specimen was collected and sent to the laboratory for analysis, as requested by the referring clinician. The patient tolerated the procedure well. A chest x-ray was ordered. US/Thoracentesis W US IMPRESSION: Ultrasound-guided right thoracentesis. Electronically Signed: Anmol Lopez MD at 9:29 EDT ,
[2022-07-12] MEDS: Lidocaine 2% (20 ml mdv) 20 ML Vial INFILT (08:35)
[2022-07-12] MEDS: 0.9% Saline Lock 10 ML Syringe IV (09:19)
[2022-07-12] MEDS: oxyCODONE 5 MG Tablet PO ×2 (09:20→13:45)
[2022-07-12] MEDS: Acetaminophen 325 MG Tablet 650 MG PO (09:20)
[2022-07-12 09:34] LABS: Body Fluid Mononuclear WBC % 17.7 %; Body Fluid Polynuclear WBC # 1.449 10^3/uL; Body Fluid Polynuclear WBC % 82.3 %; Body Fluid Total Cells Counted 1.958 10^3/ul; White Blood Count/Body Fluid 1.759 10^3/uL
[2022-07-12 09:38] LABS: Appearance/Body Fluid SL CLDY; Auto B Fluid Analyzer BKGD Ct COUNTS W/IN LIMITS (W/IN LIMITS); Color/Body Fluid YELLOW; Source- Body Fluid THORACENTESIS
[2022-07-12 09:57] LABS: Red Cell Count/Body Fluid 355 /mm3
[2022-07-12] MEDS: Propranolol 40 MG Tablet PO ×2 (10:04→21:29)
[2022-07-12] MEDS: Ensure Plus High Protein 120 ML LIQUID PO ×3 (10:04→17:56)
[2022-07-12 10:14] LABS: LDH,Body Fluid 144 Units/l (Not Establ.); Protein, Body Fluid 3.3 g/dL (Not Establ.)
[2022-07-12 11:18] LABS: Lymphocytes 7 %; Neutrophil (Segs) 77 %; Other Cell Type/BF 16 %
[2022-07-12 11:21] LABS: Body Fluid QC Type(s) BF2Q
--- NOTE | 2022-07-12 12:29 | WOUNDNOTE ---
wound photo: left lateral side
[2022-07-13] VITALS (12 sets, daily range): BP systolic 102–117; BP diastolic 58–73; PULSE 83–100; RESP 16–24; TEMP 36.5–36.9; O2SAT 89–95
[2022-07-13 05:28] LABS: Absolute Lymphocyte Count 0.57 X10^3/uL (0.83-4.51); Basophil# 0.05 X10^3/uL; Basophil% 0.4 % (0-1); Eosinophil# 0.08 X10^3/uL; Eosinophils% 0.6 % (0-5); Hematocrit 34.4 % (37-47); Hemoglobin 10.8 g/dL (12.0-15.0); Lymphocyte # 0.57 X10^3/ul (0.83-4.51); Lymphocyte % 4.1 % (19-41); Mean Corp Hgb Conc 31.4 g/dL (32-36); Mean Corpuscular Hgb 24.5 pg (27.0-32.0); Mean Platelet Vol. 9.1 fl (6.2-12.0); Monocyte# 1.11 X10^3/uL; Monocyte% 7.9 % (0-10); NRBC Flagged by Analyzer 0 % (0-5); Neutrophil % 85.9 % (47-70); POSITIVE DIFFERENTIAL YES; Platelet Count 494 K/mm3 (150-450); RBC Distribution Width CV 14.8 % (11.6-14.6); RBC Distribution Width SD 41.4 fl (35.1-43.9); Red Blood Count 4.41 M/mm3 (4.2-5.4)
[2022-07-13 05:32] LABS: Differential Indicated SCAN CRITERIA MET
[2022-07-13 05:44] LABS: Anion Gap 6 (5-15); BUN 12 mg/dL (7-18); Chloride 100 mmol/L (98-107); Creatinine, Serum 0.43 mg/dL (0.55-1.02); EST Glomerular Filtration Rate 156 mL/min (>60); Est Glom Filt Rate - Afr Amer 189 mL/min (>60); Glucose 114 mg/dL (74-106); Potassium 3.8 mmol/L (3.5-5.1); Sodium Level 132 mmol/L (136-145)
[2022-07-13 06:32] LABS: Differential Comment SCANNED
[2022-07-13] MEDS: Ipratropium/Albuterol Sulfate 3 ML AMPUL.NEB INHALATION ×3 (07:19→19:44)
[2022-07-13] MEDS: Acetaminophen 325 MG Tablet 650 MG PO ×2 (08:30→21:59)
--- NOTE | 2022-07-13 08:30 | RAD_ITS ---
STUDY: X-RAY CHEST REASON FOR EXAM: Female, 67 years old. Pneumothorax TECHNIQUE: Single AP portable view of the chest. COMPARISON: Comparison is made with prior study dated July 12, 2022. FINDINGS: EKG electrodes are seen. Minimal residual right apical pneumothorax. There is been progressive increase in size of the right pleural effusion with right basilar atelectasis and/or infiltrate. The left lung is clear. Normal size heart. Normal mediastinum and lev. Normal visualized pulmonary arteries. Normal visualized aortic arch and descending thoracic aorta. Normal visualized thoracic spine. Normal visualized ribs, clavicles, and shoulders. There is no demonstrated abnormality of the visualized soft tissue structures of the upper abdomen. RAD/Chest 1 View (Portable) IMPRESSION: Minimal residual left apical pneumothorax with increasing right pleural effusion and right basilar infiltration and/or atelectasis. Electronically Signed: Anmol Lopez MD at 8:43 EDT ,
--- NOTE | 2022-07-13 08:57 | PN.HOSP_ITS ---
Reason for Visit Reason for Visit: Diagnoses Malignant neoplasm of unspecified part of right bronchus or lung (07/10/22) Unspecified severe protein-calorie malnutrition (07/10/22) Lobar pneumonia, unspecified organism (07/10/22) Pleural effusion, not elsewhere classified (07/10/22) Pneumothorax, unspecified (07/10/22) Tachycardia, unspecified (07/10/22) Subjective Subjective No new events. Objective Data Objective Data Vital Signs: Vital Signs Temp Pulse Resp BP Pulse Ox O2 Del Method O2 Flow Rate 36.8 C 83 20 H 107/66 89 Nasal Cannula 5 07/13/22 03:15 07/13/22 07:19 07/13/22 07:19 07/13/22 03:15 07/13/22 07:19 07/13/22 07:19 07/13/22 07:19 Oxygen Flow Rate (L/min) [3] 4 Oxygen Flow Rate (L/min) [2] 4 Oxygen Flow Rate (L/min) [1 ( 4 Initial Baseline)] Oxygen Flow Rate (L/min) 5 Oxygen Delivery Method [3] Nasal Cannula Oxygen Delivery Method [2] Nasal Cannula Oxygen Delivery Method [1 ( Nasal Cannula Initial Baseline)] Oxygen Delivery Method Nasal Cannula Weight: 55.7 kg Body Mass Index (BMI) 19.8 Intake & Output: Intake and Output for Last 24 Hours 07/11/22 07/12/22 07/13/22 23:59 23:59 23:59 Intake Total 840.75 / 840.75 525 / 525 Output Total 2100 / 2100 Balance 840.75 / 740.75 -1575 / -1575 Medical Nutrition Assessment Dietitian: Malnutrition Criteria Met Start: 07/11/22 15:47 Freq: Status: Active Protocol: Document 07/11/22 15:47 AG (Rec: 07/11/22 15:47 AG [id number]) Nutrition Malnutrition Evidence of Malnutrition Exists Yes Malnutrition (severe): Chronic Evidenced By Suboptimal Energy Intake ( Severe),Weight Loss (Severe), Physical Changes (Severe) Clinical Problem Chronic Disease or Condition Related Malnutrition Etiology severe, chronic malnutrition related to inadequate energy intake w/ increased energy needs Signs/Symptoms as evidenced by unintentional wt loss of 19.2#/14% x 6 months; estimated PO intake meeting <75% of estimated energy needs > 3 months; Severe muscle wasting/fat loss evident per phyiscal exam in orbital, clavicle, acromion, and temporal areas; BMI 19.8 Status Active Problem Recommendation Dietitian Recommendations/Changes continue regular diet; ensure plus high protein 120mL 4x/day and magic cup w/ dinner d/t evidence of malnutrition Lab / Micro Data Result Diagrams: 07/13/22 05:13 07/13/22 05:13 Labs: Laboratory Results - last 24 hr 07/12/22 08:30: Fluid Total Protein 3.3, Fluid LDH 144 07/12/22 : Fluid Source THORACENTESIS, Fluid Color YELLOW, Fluid Appearance SL CLDY, Fluid WBC 1.759, Fluid RBC 355, Fluid Tot Cell Count 1.958 H, Fld Polynuclear WBCs # 1.449, Fld Polynuclear WBCs % 82.3, Fluid Mononuclear WBCs 0.310, Fld Mononuclear WBCs % 17.7, Fluid Neutrophils 77, Fluid Lymphocytes 7, Fluid Other Cells 16, Fl Pathologist Comment May follow, Fluid Comment 2 SEE COMMENT 07/13/22 05:13: WBC 14.0 H, RBC 4.41, Hgb 10.8 L, Hct 34.4 L, MCV 78.0 L, MCH 24.5 L, MCHC 31.4 L, RDW Std Deviation 41.4, RDW Coeff of Safia 14.8 H, Plt Count 494 H, MPV 9.1, Immature Gran % (Auto) 1.100 H, Neut % (Auto) 85.9 H, Lymph % (Auto) 4.1 L, [place] % (Auto) 7.9, Eos % (Auto) 0.6, Baso % (Auto) 0.4, Absolute Neuts (auto) 12.0 H, Absolute Lymphs (auto) 0.57 L, Nucleated RBC % 0, Differential Comment SCANNED 07/13/22 05:13: Sodium 132 L, Potassium 3.8, Chloride 100, Carbon Dioxide 26.0, Anion Gap 6, BUN 12, Creatinine 0.43 L, Estim Creat Clear Calc 48.00, Est GFR (MDRD) Af Amer 189, Est GFR (MDRD) Non-Af 156, BUN/Creatinine Ratio 28.0 H, Glucose 114 H, Calcium 9.0 Micro: Microbiology 07/11/22 15:48 Urine, Clean Catch Legionella Antigen - Final 07/11/22 15:48 Urine, Clean Catch Streptococcus pneumoniae Antigen (M - Final Radiography Diagnostic Testing: Radiology Impression Chest X-Ray 07/12/22 07:55 IMPRESSION: Status post right thoracentesis. Small right apical pneumothorax. The patient is asymptomatic. Electronically Signed: Anmol Lopez MD at 9:04 EDT , Thoracentesis Ultrasound 07/12/22 08:30 IMPRESSION: Ultrasound-guided right thoracentesis. Electronically Signed: Anmol Lopez MD at 9:29 EDT , Chest X-Ray 07/13/22 08:30 IMPRESSION: Minimal residual left apical pneumothorax with increasing right pleural effusion and right basilar infiltration and/or atelectasis. Electronically Signed: Anmol Lopez MD at 8:43 EDT , Rhythm Strip Rhythm Strip: Sinus Tach Rate: 144 Ectopy: None Physical Exam Const alert and no apparent distress HEENT head/scalp atraumatic Psych Mood & Affect: anxious Assessment & Plan Assessment/Plan (1) Right lower lobe consolidation: PLAN: CTA shows No PE/dissection, wall thickening of right bronchioles, moderate right pleural effusion wbasilar infiltrate/atx, RUL ATX/paratracheal mas, collapse of RML In the meantime, pulmonary toilet, antibiotics with ceftriaxone and azithromycin Strep and legionella antigens negative SCx pending Repeat CAT scan showed mild loss of the right hemithorax with shift of the heart mediastinal structures of the right side of the midline with small to moderate size pleural effusion and almost complete collapse of the right upper lobe and compressive atelectasis of the right lower lobe. No worsening pleural effusion as was initially suggested on the chest x-ray from earlier today. Discussed with the patient that the pleural effusion is not significantly worse. We will plan on doing some vest therapy to see if we can open up her airways, if not may consult pulmonology to see have any additional recommendations. Repeat chest x-ray in the morning. (2) Non-small cell lung cancer: QUALIFIERS: Laterality: right Qualified Code(s): C34.91 - Malignant neoplasm of unspecified part of right bronchus or lung PLAN: Discussed with Dr. Goyal and stated that the biopsies were undifferentiated but appeared that the primary source was from her lung. Patient has been undergoing radiation treatment She has not desired to undergo chemotherapy, at least at this point in time. There is concerned about how she may tolerate chemotherapy she presented relatively poor performance status. Patient has known brain metastasis as well as subcutaneous lesions on her left posterior flank as well as her left buttocks. I do not know where the rest of her metastasis are, if she does have some. We will request records from [facility] (3) Pleural effusion, right: PLAN: Seen on CT given symptomatology, thoracentesis 07/12 with removal of 1000cc suspect malignant given known NSCLC Exudative. Likely due to malignancy. Repeat CT does not show reaccumulation of the fluid as initially was thought on the x-ray from today. (4) Sinus tachycardia: PLAN: Improved Appears to be sinus. Patient does take propranolol and will continue. Patient be monitored on telemetry Check 2D echocardiogram (5) Severe protein-calorie malnutrition: PLAN: Consult nutrition Start supplements with Ensure (6) Pneumothorax: PLAN: Iatrogenic from thoracentesis Follow up xray shows near resolution. No need for CT at this time. (7) Pericardial effusion: PLAN: Noted on CAT scans. Patient did have an echocardiogram on the that showed an EF of 55%. But was abbreviated due to noncooperation. PLAN: Plan VTE prophylaxis: SCDs for now in case patient does require a thoracentesis. CODE STATUS: Addressed with the patient. Patient wishes to be full code. Prognosis: guarded. Charges/Coding Visit Charges Inpatient E&M: 84446 Subs Hosp L3
--- NOTE | 2022-07-13 11:01 | CT_ITS ---
STUDY: CT CHEST WITH CONTRAST REASON FOR EXAM: Female, 67 years old. Recurrent pleural effusion RADIATION DOSAGE (If Supplied By Facility): CTDIvol = ( 11.49 ) mGy, DLP = ( 224.54 ) mGycm TECHNIQUE: Transaxial imaging was performed following intravenous administration of IV 100mL Isovue-300. Multiplanar coronal and sagittal images were reformatted. Individualized dose optimization techniques were used for this CT. COMPARISON: Comparison is made with prior chest radiograph done earlier today. FINDINGS: CHEST Small left axillary lymph nodes. There is shift of the heart and mediastinal structures into the right hemithorax due to almost complete collapse of the right upper lobe. There is narrowing of the right upper lobe bronchus. There is also evidence of a small to moderate-sized right pleural effusion with compressive atelectasis in the right lower lobe. There is hyperinflation of the left lung. Minimal tiny right apical pneumothorax. Moderate size pericardial effusion. No significant coronary artery calcification is seen. There are multiple small lymph nodes within the mediastinum, which are normal in size and morphology most compatible with reactive lymph hyperplasia. Normal hilar regions. Normal unenhanced pulmonary arteries. Normal aorta arch and descending thoracic aorta. There are multi-level degenerative changes of the thoracic spine. Increased kyphosis. 1.7 cm x 1.8 cm soft tissue density in the left adrenal gland. There is a 3.1 cm x 2.3 cm hypodense nodule in the subcutaneous tissues overlying the posterior left lateral inferior chest wall. CT/Chest WITH Contrast IMPRESSION: Mild loss in the right hemithorax with shift of the heart and mediastinal structures to the right side of the midline with a small to moderate-sized pleural effusion and almost complete collapse of the right upper lobe and compressive atelectasis of the right lower. Correlation with bronchoscopy is recommended for further evaluation. Minimal tiny right apical pneumothorax. Pericardial effusion. Electronically Signed: Anmol Lopez MD at 12:11 EDT ,
--- NOTE | 2022-07-13 11:30 | NURSING ---
Physician discussing plan of care with and patient.
[2022-07-13] MEDS: Ensure Plus High Protein 120 ML LIQUID PO ×3 (11:42→17:47)
[2022-07-13] MEDS: Propranolol 40 MG Tablet PO ×2 (11:42→21:59)
[2022-07-13] MEDS: 0.9% Saline Lock 10 ML Syringe IV ×3 (11:43→22:00)
[2022-07-13] MEDS: oxyCODONE 5 MG Tablet PO (12:53)
[2022-07-13] MEDS: LORazepam 1 MG Tablet PO ×2 (13:56→21:59)
--- NOTE | 2022-07-13 14:13 | CASEMGMT ---
RN CM in to discuss discharge planning with patient. RN CM discuss HHC at discharge. Patient agreeable to HHC. A list of HHC providers including quality and resource use data and consistent with the patient?s preferred geographical region, medical needs, and insurance network were provided from the [employer] [facility]. Patient to review list and provide preferences. CM will continue to to follow this patient and plan for a safe discharge.
[2022-07-13] MEDS: guaiFENesin 1,200 MG Tablet 1200 MG PO (21:59)
[2022-07-14] VITALS (10 sets, daily range): BP systolic 103–121; BP diastolic 54–80; PULSE 72–100; RESP 16–24; TEMP 36.4–37.1; O2SAT 92–96
[2022-07-14] MEDS: Ipratropium/Albuterol Sulfate 3 ML AMPUL.NEB INHALATION ×3 (01:08→19:32)
--- NOTE | 2022-07-14 05:55 | RAD_ITS ---
EXAM: XR CHEST, 1 VIEW CLINICAL INDICATION: pneumonia, pneumothorax, pleural effusion. TECHNIQUE: Frontal view of the chest. This report was created using [employer] report generation technology. COMPARISON: XR Chest dated 07/13/2022 FINDINGS: LUNGS AND PLEURAL SPACES: Small localized pneumothorax at the right lung base. Central right lung density noted with significant volume loss changes of the right lung with associated pleural effusion/thickening. Central right lung neoplasm suspected. HEART: Normal heart size. MEDIASTINUM: No mediastinal or hilar mass. BONES/JOINTS: No acute abnormality. RAD/Chest 1 View (Portable) IMPRESSION: Suspect central right lung mass associated with partial collapse of the right lung and right pleural effusion. Air collection right lung base consistent with localized less than 10% pneumothorax. Electronically Signed: Danish Bose MD at 10:24 EDT ,
[2022-07-14 06:02] LABS: Absolute Lymphocyte Count 0.54 X10^3/uL (0.83-4.51); Absolute Neutrophil Count 13.2 X10^3/uL (2.0-7.7); Basophil# 0.06 X10^3/uL; Basophil% 0.4 % (0-1); Eosinophils% 0.7 % (0-5); Hematocrit 34.5 % (37-47); Hemoglobin 10.7 g/dL (12.0-15.0); Lymphocyte # 0.54 X10^3/ul (0.83-4.51); Lymphocyte % 3.5 % (19-41); Mean Corpuscular Hgb 24.4 pg (27.0-32.0); Mean Corpuscular Volume 78.8 fL (81-99); Mean Platelet Vol. 9.1 fl (6.2-12.0); Monocyte# 1.23 X10^3/uL; NRBC Flagged by Analyzer 0 % (0-5); Neutrophil # 13.22 X10^3/uL (2.7-7.7); Neutrophil % 86.2 % (47-70); POSITIVE DIFFERENTIAL YES; Platelet Count 494 K/mm3 (150-450); RBC Distribution Width CV 14.8 % (11.6-14.6); RBC Distribution Width SD 41.9 fl (35.1-43.9); Red Blood Count 4.38 M/mm3 (4.2-5.4); White Blood Count 15.3 K/mm3 (4.4-11.0)
[2022-07-14 06:43] LABS: Differential Indicated SCAN CRITERIA MET
[2022-07-14 06:58] LABS: Anion Gap 7 (5-15); BUN 15 mg/dL (7-18); BUN/Creat Ratio 34.4 RATIO (10-20); Chloride 99 mmol/L (98-107); Creatinine, Serum 0.44 mg/dL (0.55-1.02); EST Glomerular Filtration Rate 153 mL/min (>60); Est Glom Filt Rate - Afr Amer 185 mL/min (>60); Glucose 109 mg/dL (74-106); Potassium 3.7 mmol/L (3.5-5.1); Sodium Level 131 mmol/L (136-145)
[2022-07-14 07:08] LABS: Differential Comment SCANNED
--- NOTE | 2022-07-14 08:43 | PCM.PN.HOSP ---
Reason for Visit Reason for Visit: Diagnoses Malignant neoplasm of unspecified part of right bronchus or lung (07/10/22) Unspecified severe protein-calorie malnutrition (07/10/22) Other pericardial effusion (noninflammatory) (07/10/22) Lobar pneumonia, unspecified organism (07/10/22) Pleural effusion, not elsewhere classified (07/10/22) Pneumothorax, unspecified (07/10/22) Tachycardia, unspecified (07/10/22) Subjective Subjective Breathing ok. Stil on 5l/m. Did not have vest therapy. Objective Data Objective Data Vital Signs: Vital Signs Temp Pulse Resp BP Pulse Ox O2 Del Method O2 Flow Rate 36.6 C 72 20 H 119/80 92 Nasal Cannula 5 07/14/22 05:19 07/14/22 07:50 07/14/22 07:50 07/14/22 05:19 07/14/22 07:50 07/14/22 07:50 07/14/22 07:50 Oxygen Flow Rate (L/min) [3] 4 Oxygen Flow Rate (L/min) [2] 4 Oxygen Flow Rate (L/min) [1 ( 4 Initial Baseline)] Oxygen Flow Rate (L/min) 5 Oxygen Delivery Method [3] Nasal Cannula Oxygen Delivery Method [2] Nasal Cannula Oxygen Delivery Method [1 ( Nasal Cannula Initial Baseline)] Oxygen Delivery Method Nasal Cannula Weight: 55.7 kg Body Mass Index (BMI) 19.8 Intake & Output: Intake and Output for Last 24 Hours 07/12/22 07/13/22 07/14/22 23:59 23:59 23:59 Intake Total 525 / 525 905 / 905 Output Total 2100 / 2100 0 / 0 Balance -1575 / -1575 904 / 904 0 / 0 Medical Nutrition Assessment Dietitian: Malnutrition Criteria Met Start: 07/11/22 15:47 Freq: Status: Active Protocol: Document 07/11/22 15:47 AG (Rec: 07/11/22 15:47 AG [id number]) Nutrition Malnutrition Evidence of Malnutrition Exists Yes Malnutrition (severe): Chronic Evidenced By Suboptimal Energy Intake ( Severe),Weight Loss (Severe), Physical Changes (Severe) Clinical Problem Chronic Disease or Condition Related Malnutrition Etiology severe, chronic malnutrition related to inadequate energy intake w/ increased energy needs Signs/Symptoms as evidenced by unintentional wt loss of 19.2#/14% x 6 months; estimated PO intake meeting <75% of estimated energy needs > 3 months; Severe muscle wasting/fat loss evident per phyiscal exam in orbital, clavicle, acromion, and temporal areas; BMI 19.8 Status Active Problem Recommendation Dietitian Recommendations/Changes continue regular diet; ensure plus high protein 120mL 4x/day and magic cup w/ dinner d/t evidence of malnutrition Lab / Micro Data Result Diagrams: 07/14/22 05:41 07/14/22 05:41 Labs: Laboratory Results - last 24 hr 07/14/22 05:41: WBC 15.3 H, RBC 4.38, Hgb 10.7 L, Hct 34.5 L, MCV 78.8 L, MCH 24.4 L, MCHC 31.0 L, RDW Std Deviation 41.9, RDW Coeff of Safia 14.8 H, Plt Count 494 H, MPV 9.1, Immature Gran % (Auto) 1.200 H, Neut % (Auto) 86.2 H, Lymph % (Auto) 3.5 L, [place] % (Auto) 8.0, Eos % (Auto) 0.7, Baso % (Auto) 0.4, Absolute Neuts (auto) 13.2 H, Absolute Lymphs (auto) 0.54 L, Nucleated RBC % 0, Differential Comment SCANNED 07/14/22 05:41: Sodium 131 L, Potassium 3.7, Chloride 99, Carbon Dioxide 25.0, Anion Gap 7, BUN 15, Creatinine 0.44 L, Estim Creat Clear Calc 48.00, Est GFR (MDRD) Af Amer 185, Est GFR (MDRD) Non-Af 153, BUN/Creatinine Ratio 34.4 H, Glucose 109 H, Calcium 9.0 Micro: Microbiology 07/11/22 15:48 Urine, Clean Catch Legionella Antigen - Final 07/11/22 15:48 Urine, Clean Catch Streptococcus pneumoniae Antigen (M - Final Radiography Diagnostic Testing: Radiology Impression Chest X-Ray 07/13/22 08:30 IMPRESSION: Minimal residual left apical pneumothorax with increasing right pleural effusion and right basilar infiltration and/or atelectasis. Electronically Signed: Anmol Lopez MD at 8:43 EDT , Chest CT 07/13/22 11:01 IMPRESSION: Mild loss in the right hemithorax with shift of the heart and mediastinal structures to the right side of the midline with a small to moderate-sized pleural effusion and almost complete collapse of the right upper lobe and compressive atelectasis of the right lower. Correlation with bronchoscopy is recommended for further evaluation. Minimal tiny right apical pneumothorax. Pericardial effusion. Electronically Signed: Anmol Lopez MD at 12:11 EDT , Rhythm Strip Rhythm Strip: Sinus Tach Rate: 144 Ectopy: None Physical Exam Const alert Constitutional Narrative: flat affect. HEENT head/scalp atraumatic Resp Resp Narrative: diminished on right. Cardio regular rate, regular rhythm, S1 normal heart sound and S2 normal heart sound GI normal to inspection, nondistended, normoactive bowel sounds and soft to palpation Extremity normal to inspection Assessment & Plan Assessment/Plan (1) Right lower lobe consolidation: PLAN: CTA shows No PE/dissection, wall thickening of right bronchioles, moderate right pleural effusion wbasilar infiltrate/atx, RUL ATX/paratracheal mas, collapse of RML In the meantime, pulmonary toilet, antibiotics with ceftriaxone and azithromycin Strep and legionella antigens negative SCx pending Repeat CAT scan showed mild loss of the right hemithorax with shift of the heart mediastinal structures of the right side of the midline with small to moderate size pleural effusion and almost complete collapse of the right upper lobe and compressive atelectasis of the right lower lobe. No worsening pleural effusion as was initially suggested on the chest x-ray from earlier today. Discussed with the patient that the pleural effusion is not significantly worse. We will plan on doing some vest therapy to see if we can open up her airways, if not may consult pulmonology to see have any additional recommendations. Repeat chest x-ray in the morning. 07/14: slightly improved aeration in RLL. Reviewed CT from [facility]. Pt had obstruction of RUL at that time. I suspect it opened up w XRT, but eventually obstructed again. DW Dr. Gamboa who will on consultation. Add steroids. (2) Non-small cell lung cancer: QUALIFIERS: Laterality: right Qualified Code(s): C34.91 - Malignant neoplasm of unspecified part of right bronchus or lung PLAN: Discussed with Dr. Goyal and stated that the biopsies were undifferentiated but appeared that the primary source was from her lung. Patient has been undergoing radiation treatment She has not desired to undergo chemotherapy, at least at this point in time. There is concerned about how she may tolerate chemotherapy she presented relatively poor performance status. Patient has known brain metastasis as well as subcutaneous lesions on her left posterior flank as well as her left buttocks. I do not know where the rest of her metastasis are, if she does have some. We will request records from [facility] (3) Pleural effusion, right: PLAN: Seen on CT given symptomatology, thoracentesis 07/12 with removal of 1000cc suspect malignant given known NSCLC Exudative. Likely due to malignancy. Repeat CT does not show reaccumulation of the fluid as initially was thought on the x-ray from today. (4) Sinus tachycardia: PLAN: Improved Appears to be sinus. Patient does take propranolol and will continue. Patient be monitored on telemetry Check 2D echocardiogram (5) Severe protein-calorie malnutrition: PLAN: Consult nutrition Start supplements with Ensure (6) Pneumothorax: PLAN: Iatrogenic from thoracentesis Follow up xray shows near resolution. No need for CT at this time. (7) Pericardial effusion: PLAN: Noted on CAT scans. Patient did have an echocardiogram on the that showed an EF of 55%. But was abbreviated due to noncooperation. PLAN: Plan VTE prophylaxis: SCDs for now in case patient does require a thoracentesis. CODE STATUS: Addressed with the patient. Patient wishes to be full code. Prognosis: guarded. Charges/Coding Visit Charges Inpatient E&M: 93408 Subs Hosp L3
[2022-07-14 09:44] LABS: Pathologist Comment/Body Fluid Reviewed
[2022-07-14] MEDS: Propranolol 40 MG Tablet PO ×2 (10:42→22:25)
[2022-07-14] MEDS: guaiFENesin 1,200 MG Tablet 1200 MG PO ×2 (10:42→22:25)
[2022-07-14] MEDS: Ensure Plus High Protein 120 ML LIQUID PO ×3 (10:42→17:34)
[2022-07-14] MEDS: 0.9% Saline Lock 10 ML Syringe IV ×2 (10:43→22:25)
--- NOTE | 2022-07-14 11:45 | CASEMGMT ---
Addendum entered by Christina Munoz 07/14/22 12:14: LAW NUNEZ received called back from [facility] and they are able to accept the patient with planned start of care for 07/19. LAW UNNEZ updated patient and . CM will continue to follow this patient and plan for a safe discharge. Original Note: LAW NUNEZ in to discuss discharge planning with patient. Patient resting. reviewed [facility] list and would like [facility]. LAW NUNEZ called [facility] and made referral. [facility] to review. Per patient will need [facility] at discharge. DME reviewed and would like [employer]. Will monitor for home oxygen as well. had no further question or concerns at this time.
--- NOTE | 2022-07-14 15:01 | CON.PCM.CC_ITS ---
Assessment & Plan Assessment/Plan (1) Metastatic cancer: PLAN: Malignant right pleural effusion with trapped lung. Distant contralateral multiple metastases seen on CT. Further thoracentesis should be palliative only. Her life expectancy is fairly short her BMI is 19, and do not believe a Pleurx catheter would contribute significantly to her quality of life. She is stage IVb non-small cell carcinoma. She was seen by oncology Dr. Goyal who wants to follow-up with her as an outpatient. No plans for chemo or immunotherapy at this time. - Continue goals of care discussion. Placing this woman on life support would likely not benefit her much and produce a very large burden of suffering on her near future. (2) COPD (chronic obstructive pulmonary disease): PLAN: Continue current treatment (3) Pneumothorax: QUALIFIERS: Pneumothorax type: postprocedural Qualified Code(s): J95.811 - Postprocedural pneumothorax PLAN: Clinically improved, not using noninvasive ventilation - Check chest x-ray in a.m. (4) Acute respiratory failure with hypoxia: PLAN: Stable on current treatment (5) Pleural effusion, right: PLAN: As above. (6) Pericardial effusion: (7) Severe protein-calorie malnutrition: HPI Consult Data Date of Consult: 07/14/22 HPI Narrative Reason for Consultation: Pulmonary is consulted on this 67-year-old f w/stage IVb non-small lung CA HPI Narrative: GRZEGORZ KEN, is a 67 F with COPD and known lung cancer of the right mediastinum, right lung mass, right upper lobe atelectasis, and right pleural effusion. This was tapped for 1 L of exudative fluid on 07/12/2022 and had malignant small cell carcinoma diagnosed, positive for mucin, RF 23?3 94. Immunohistochemistry was positive for AE1?3, CK7, CK8, Napsin A, HepPar ([facility] 1 E5) work-up this admission also showed no evidence of pulmonary embolism on CTA 07/09/2022. A small right postprocedure pneumothorax 10% was noted on 07/12/2022. The patient's dyspnea improved after the procedure. She is stable on 5 L of oxygen She is undergoing palliative radiation therapy without chemotherapy per Dr. Donnie villa of oncology. At this time there are no plans for immunotherapy. She is a full code. Currently, she is feeling much better than she did on admission. She is breathing more comfortably, on nasal O2, and eating well. She is able to speak complete sentences, is not raising much sputum, denies hemoptysis. Small amount of right-sided pleurisy at the site of her thoracentesis. [facility] Medical History (Updated 07/14/22 @ 15:[address] Sam Esteban MD) COPD (chronic obstructive pulmonary disease) HLD (hyperlipidemia) Migraine Non-small cell lung cancer Osteoporosis Severe protein-calorie malnutrition Home Medications Omeprazole [Prilosec] 20 mg PO DAILY Check with primary doctor 03/06/16 [History Last Taken 07/10/22] paroxetine HCl 40 mg tablet (Paxil) 20 mg PO DAILY Check with primary doctor 03/06/16 [History Last Taken 07/10/22] albuterol sulfate 90 mcg/actuation aerosol inhaler 2 puff inhalation Q4H PRN PRN sob 07/10/22 [History Last Taken 07/10/22] fluticasone fur. 100 mcg-umeclid 62.5 mcg-vilant 25 mcg inhalat.powder (Trelegy Ellipta) 1 inh inhalation DAILY sob 07/10/22 [History Last Taken 07/10/22] haloperidol 1 mg tablet 1 mg PO BID Check with primary doctor 07/10/22 [History Last Taken 07/10/22] hydrocodone-acetaminophen 5-325mg 5mg-325mg 1 tab PO Q6H PRN PRN Pain 07/10/22 [History Last Taken 07/10/22] pravastatin 20 mg tablet 20 mg PO DAILY Check with primary doctor 07/10/22 [History Last Taken 07/10/22] prednisone 10 mg tablet 5 mg PO QHS Check with primary doctor 07/10/22 [History Last Taken 07/09/22] prednisone 10 mg tablet 10 mg PO DAILY Check with primary doctor 07/10/22 [History Last Taken 07/10/22] trazodone 50 mg tablet 100 mg PO QHS Check with primary doctor 07/10/22 [History Last Taken 07/09/22] Allergy/AdvReac Type Severity Reaction Status Date / Time propoxyphene [From Darvon] AdvReac Other Verified 07/10/22 16:00 Surgical History navel surgery Social History household members: spouse Smoking Status: Light Smoker (<10/day) Smokeless tobacco user: other Electronic Cigarette Use: with nicotine substance use type: does not use Physical Exam Narrative Pleasant cachectic woman sitting up in bed without respiratory distress. Eating supper. HEENT no thrush Neck is supple with mild JVD at 45 degrees Chest is diminished on the right, with no pleural rub and no wheezing, rales or rhonchi. She did not cough during today's visit. Heart normal S1-S2 with no murmurs rubs or gallops, pulses are 2+. Abdomen is soft nontender, good bowel sound. Extremities have no clubbing cyanosis or edema Neurologic is nonfocal she is alert and oriented x3. Skin is warm and dry Medical Records Data Attestation: I reviewed the patient's medical records Medical Nutrition Assessment Dietitian: Malnutrition Criteria Met Start: 07/11/22 15:47 Freq: Status: Active Protocol: Document 07/14/22 14:54 RMA (Rec: 07/14/22 14:54 RMA [id number]) Nutrition Malnutrition Evidence of Malnutrition Exists Yes Malnutrition (severe): Chronic Evidenced By Suboptimal Energy Intake ( Severe),Weight Loss (Severe), Physical Changes (Severe) Clinical Problem Chronic Disease or Condition Related Malnutrition Etiology severe, chronic malnutrition related to inadequate energy intake w/ increased energy needs Signs/Symptoms as evidenced by unintentional wt loss of 19.2#/14% x 6 months; estimated PO intake meeting <75% of estimated energy needs > 3 months; Severe muscle wasting/fat loss evident per phyiscal exam in orbital, clavicle, acromion, and temporal areas; BMI 19.8 Status Active Problem Recommendation Dietitian Recommendations/Changes Will continue regular diet with magic cup at dinner as tolerated. Will continue 120ml Ensure plus high protein 4x/day with medpass. Lab / Micro Data Attestation: I reviewed the patient's lab results. Lab results narrative: Chest x-ray 07/14/2022 has a large right lung mass, right base atelectasis and/or effusion, and small right 10% pneumothorax. Chest CT with contrast 07/13/2022 shows a right shift of the heart and mediastinal structures with right upper lobe atelectasis, narrowed right upper lobe bronchus, small to moderate right pleural effusion with compressive atelectasis in the right lower lobe, hyperinflation of the left lung, small right apical pneumothorax. Moderate pericardial effusion, multiple small lymph nodes in the mediastinum, 1.7 x 1.8 cm mass in the left adrenal, DJD thoracic spine. 3.1 x 2.3 cm nodule in the left postero-lateral inferior chest wall Ultrasound thoracentesis 07/12/2022 yielded 1000 cc of claudia-colored fluid. Pathology report showed malignant cells present from non-small cell carcinoma positive for mucin and RF 23?3 94. Immunohistochemistry was positive for AE1?3, CK7, CK8, Napsin A, HepPar ([facility] 1 E5) CTA 06/06 was negative for pulmonary embolism, had bilateral pleural effusions right greater than left, without pneumonia or dissection. CTA 07/09 was negative for pulmonary embolism, distended esophagus with air-fluid level, large left pleural effusion and left perihilar consolidation, with otherwise normal pulmonary parenchyma. Bilateral leg Dopplers 06/07/2022 were negative for DVT. The patient was negative for urine Streptococcus and Legionella, SARS Cov 2 nasal swab PCR, urine strep, and respiratory PCR. Thoracentesis 07/06/2022 had no growth to date. Left heel wound on 06/07/2022 had coag negative staph and Enterococcus faecalis. Chest x-ray 07/12/2022 was personally reviewed and showed right side pleural effusion with rightward shift of the mediastinal, tenting of the right hemidiaphragm. Echocardiogram 07/11/2022 showed normal RV size and function, normal LV size and systolic function with stage I diastolic dysfunction, ejection fraction 55%. Chest x-ray 03/24/2020 had no acute infiltrates or effusions no masses. Result Diagrams: 07/14/22 05:41 07/14/22 05:41 Labs: Laboratory Results - last 24 hr 07/12/22 : Fl Pathologist Comment Reviewed 07/14/22 05:41: WBC 15.3 H, RBC 4.38, Hgb 10.7 L, Hct 34.5 L, MCV 78.8 L, MCH 24.4 L, MCHC 31.0 L, RDW Std Deviation 41.9, RDW Coeff of Safia 14.8 H, Plt Count 494 H, MPV 9.1, Immature Gran % (Auto) 1.200 H, Neut % (Auto) 86.2 H, Lymph % (Auto) 3.5 L, [place] % (Auto) 8.0, Eos % (Auto) 0.7, Baso % (Auto) 0.4, Absolute Neuts (auto) 13.2 H, Absolute Lymphs (auto) 0.54 L, Nucleated RBC % 0, Differential Comment SCANNED 07/14/22 05:41: Sodium 131 L, Potassium 3.7, Chloride 99, Carbon Dioxide 25.0, Anion Gap 7, BUN 15, Creatinine 0.44 L, Estim Creat Clear Calc 48.00, Est GFR (MDRD) Af Amer 185, Est GFR (MDRD) Non-Af 153, BUN/Creatinine Ratio 34.4 H, Glucose 109 H, Calcium 9.0 Rhythm Strip Rhythm Strip: Sinus Tach Rate: 144 Ectopy: None Radiology Impression Chest X-Ray 07/14/22 05:55 IMPRESSION: Suspect central right lung mass associated with partial collapse of the right lung and right pleural effusion. Air collection right lung base consistent with localized less than 10% pneumothorax. Electronically Signed: Danish Bose MD at 10:24 EDT , Charges/Coding Visit Charges Inpatient E&M: 27586 Init Hosp L2
[2022-07-15] VITALS (8 sets, daily range): BP systolic 117–133; BP diastolic 52–66; PULSE 84–98; RESP 16–24; TEMP 36.3–36.7; O2SAT 90–94
--- NOTE | 2022-07-15 01:30 | NURSING ---
This RN took over patient care at this time.
[2022-07-15] MEDS: Ipratropium/Albuterol Sulfate 3 ML AMPUL.NEB INHALATION ×4 (02:15→20:29)
[2022-07-15] MEDS: 0.9% Saline Lock 10 ML Syringe IV ×3 (06:39→21:11)
--- NOTE | 2022-07-15 08:05 | PN.HOSP_ITS ---
Reason for Visit Reason for Visit: Diagnoses Malignant neoplasm of unspecified part of right bronchus or lung (07/10/22) Secondary malignant neoplasm of unspecified site (07/10/22) Unspecified severe protein-calorie malnutrition (07/10/22) Other pericardial effusion (noninflammatory) (07/10/22) Lobar pneumonia, unspecified organism (07/10/22) Chronic obstructive pulmonary disease, unspecified (07/10/22) Pleural effusion, not elsewhere classified (07/10/22) Pneumothorax, unspecified (07/10/22) Postprocedural pneumothorax (07/10/22) Acute respiratory failure with hypoxia (07/10/22) Tachycardia, unspecified (07/10/22) Subjective Subjective Feels ok. Received vest therapy last night and has use a couple of times. Has coughed up some phlegm. Objective Data Objective Data Vital Signs: Vital Signs Temp Pulse Resp BP Pulse Ox O2 Del Method O2 Flow Rate 36.6 C 89 18 125/52 H 92 Nasal Cannula 5 07/15/22 06:49 07/15/22 06:49 07/15/22 06:49 07/15/22 06:49 07/15/22 06:49 07/15/22 06:49 07/15/22 06:49 Oxygen Flow Rate (L/min) [3] 4 Oxygen Flow Rate (L/min) [2] 4 Oxygen Flow Rate (L/min) [1 ( 4 Initial Baseline)] Oxygen Flow Rate (L/min) 5 Oxygen Delivery Method [3] Nasal Cannula Oxygen Delivery Method [2] Nasal Cannula Oxygen Delivery Method [1 ( Nasal Cannula Initial Baseline)] Oxygen Delivery Method Nasal Cannula Weight: 55.7 kg Body Mass Index (BMI) 19.8 Intake & Output: Intake and Output for Last 24 Hours 07/13/22 07/14/22 07/15/22 23:59 23:59 23:59 Intake Total 905 / 905 1555 / 1585 Output Total 0 / 0 Balance 904 / 904 1555 / 1585 Medical Nutrition Assessment Dietitian: Malnutrition Criteria Met Start: 07/11/22 15:47 Freq: Status: Active Protocol: Document 07/14/22 14:54 RMA (Rec: 07/14/22 14:54 RMA [id number]) Nutrition Malnutrition Evidence of Malnutrition Exists Yes Malnutrition (severe): Chronic Evidenced By Suboptimal Energy Intake ( Severe),Weight Loss (Severe), Physical Changes (Severe) Clinical Problem Chronic Disease or Condition Related Malnutrition Etiology severe, chronic malnutrition related to inadequate energy intake w/ increased energy needs Signs/Symptoms as evidenced by unintentional wt loss of 19.2#/14% x 6 months; estimated PO intake meeting <75% of estimated energy needs > 3 months; Severe muscle wasting/fat loss evident per phyiscal exam in orbital, clavicle, acromion, and temporal areas; BMI 19.8 Status Active Problem Recommendation Dietitian Recommendations/Changes Will continue regular diet with magic cup at dinner as tolerated. Will continue 120ml Ensure plus high protein 4x/day with medpass. Lab / Micro Data Result Diagrams: 07/15/22 08:11 07/15/22 08:11 Labs: Laboratory Results - last 24 hr 07/12/22 : Fl Pathologist Comment Reviewed Micro: Microbiology 07/11/22 15:48 Urine, Clean Catch Legionella Antigen - Final 07/11/22 15:48 Urine, Clean Catch Streptococcus pneumoniae Antigen (M - Fi nal Radiography Diagnostic Testing: Radiology Impression Chest X-Ray 07/14/22 05:55 IMPRESSION: Suspect central right lung mass associated with partial collapse of the right lung and right pleural effusion. Air collection right lung base consistent with localized less than 10% pneumothorax. Electronically Signed: Danish Bose MD at 10:24 EDT Reading Location ID and State: [address] [place] [address] Tel , Service support , Rhythm Strip Rhythm Strip: Sinus Tach Rate: 144 Ectopy: None Physical Exam Const alert and no apparent distress HEENT head/scalp atraumatic and moist oral mucous membranes Resp normal respiratory effort and no retractions Resp Narrative: diminished on right. Cardio regular rate, regular rhythm, S1 normal heart sound and S2 normal heart sound Neuro oriented x3 and CN's II-XII intact bilaterally Psych affect normal Assessment & Plan Assessment/Plan (1) Right lower lobe consolidation: PLAN: CTA shows No PE/dissection, wall thickening of right bronchioles, moderate right pleural effusion wbasilar infiltrate/atx, RUL ATX/paratracheal mas, collapse of RML In the meantime, pulmonary toilet, antibiotics with ceftriaxone and azithromycin Strep and legionella antigens negative SCx pending Repeat CAT scan showed mild loss of the right hemithorax with shift of the heart mediastinal structures of the right side of the midline with small to moderate size pleural effusion and almost complete collapse of the right upper lobe and compressive atelectasis of the right lower lobe. No worsening pleural effusion as was initially suggested on the chest x-ray from earlier today. Discussed with the patient that the pleural effusion is not significantly worse. We will plan on doing some vest therapy to see if we can open up her airways, if not may consult pulmonology to see have any additional recommendations. Repeat chest x-ray in the morning. 07/14: slightly improved aeration in RLL. Reviewed CT from [facility]. Pt had obstruction of RUL at that time. I suspect it opened up w XRT, but eventually obstructed again. DW Dr. Gamboa who will on consultation. Add steroids. 07/15: received vest therapy last night. Will monitor another 24h to see if any additional benefit. Tentative plan is for home with oxygen on 07/16. Pt and agreeable. (2) Non-small cell lung cancer: QUALIFIERS: Laterality: right Qualified Code(s): C34.91 - Malignant neoplasm of unspecified part of right bronchus or lung PLAN: Discussed with Dr. Goyal and stated that the biopsies were undifferentiated but appeared that the primary source was from her lung. Patient has been undergoing radiation treatment She has not desired to undergo chemotherapy, at least at this point in time. There is concerned about how she may tolerate chemotherapy she presented relatively poor performance status. Patient has known brain metastasis as well as subcutaneous lesions on her left posterior flank as well as her left buttocks. I do not know where the rest of her metastasis are, if she does have some. We will request records from [facility] (3) Pleural effusion, right: PLAN: Seen on CT given symptomatology, thoracentesis 07/12 with removal of 1000cc Malignant cells identified, favoring adenocarincoma Exudative. Likely due to malignancy. Repeat CT does not show reaccumulation of the fluid as initially was thought on the x-ray from today. (4) Sinus tachycardia: PLAN: Improved Appears to be sinus. Patient does take propranolol and will continue. Patient be monitored on telemetry Check 2D echocardiogram (5) Severe protein-calorie malnutrition: PLAN: Consult nutrition Start supplements with Ensure (6) Pneumothorax: QUALIFIERS: Pneumothorax type: postprocedural Qualified Code(s): J95.811 - Postprocedural pneumothorax PLAN: Iatrogenic from thoracentesis Resolved (7) Pericardial effusion: PLAN: Noted on CAT scans. Patient did have an echocardiogram on the that showed an EF of 55%. But was abbreviated due to noncooperation. PLAN: Plan VTE prophylaxis: SCDs for now in case patient does require a thoracentesis. CODE STATUS: Addressed with the patient. Patient wishes to be full code. Prognosis: guarded. Charges/Coding Visit Charges Inpatient E&M: 79816 Subs Hosp L2
[2022-07-15 08:36] LABS: Absolute Lymphocyte Count 0.28 X10^3/uL (0.83-4.51); Absolute Neutrophil Count 14.8 X10^3/uL (2.0-7.7); Basophil# 0.02 X10^3/uL; Basophil% 0.1 % (0-1); Hematocrit 33.3 % (37-47); Hemoglobin 10.7 g/dL (12.0-15.0); Lymphocyte # 0.28 X10^3/ul (0.83-4.51); Lymphocyte % 1.8 % (19-41); Mean Corp Hgb Conc 32.1 g/dL (32-36); Mean Corpuscular Hgb 24.6 pg (27.0-32.0); Mean Corpuscular Volume 76.6 fL (81-99); Mean Platelet Vol. 9.2 fl (6.2-12.0); Monocyte# 0.61 X10^3/uL; Monocyte% 3.8 % (0-10); NRBC Flagged by Analyzer 0 % (0-5); Neutrophil % 93.4 % (47-70); POSITIVE DIFFERENTIAL YES; Platelet Count 533 K/mm3 (150-450); RBC Distribution Width CV 14.7 % (11.6-14.6); RBC Distribution Width SD 40.4 fl (35.1-43.9); Red Blood Count 4.35 M/mm3 (4.2-5.4); White Blood Count 15.9 K/mm3 (4.4-11.0)
[2022-07-15 08:48] LABS: Differential Indicated SCAN CRITERIA MET
[2022-07-15 09:05] LABS: ALB/GLOB Ratio 0.3 RATIO (0.9-2.4); AST(SGOT) 28 U/L (15-37); Alanine Aminotransfer ALT/SGPT 27 U/L (13-56); Albumin, Serum 1.6 g/dL (3.2-5.0); Alkaline Phosphatase 137 U/L (45-117); Anion Gap 9 (5-15); BUN 15 mg/dL (7-18); Calcium,Total 9.1 mg/dL (8.5-10.1); Chloride 97 mmol/L (98-107); Creatinine, Serum 0.54 mg/dL (0.55-1.02); EST Glomerular Filtration Rate 121 mL/min (>60); Est Glom Filt Rate - Afr Amer 146 mL/min (>60); Globulin 5.2 g/dL (2.2-4.2); Glucose 149 mg/dL (74-106); Potassium 3.7 mmol/L (3.5-5.1); Protein, Total 6.8 g/dL (6.4-8.2); Sodium Level 132 mmol/L (136-145)
[2022-07-15] MEDS: Ensure Plus High Protein 120 ML LIQUID PO ×4 (09:13→21:11)
[2022-07-15] MEDS: Propranolol 40 MG Tablet PO ×2 (09:13→21:11)
[2022-07-15] MEDS: guaiFENesin 1,200 MG Tablet 1200 MG PO ×2 (09:13→21:11)
[2022-07-15 09:49] LABS: Differential Comment SCANNED
--- NOTE | 2022-07-15 17:06 | PCM.PN.INT ---
Assessment & Plan Assessment/Plan (1) Pleural effusion, right: PLAN: No further attempts at thoracentesis at this time on this loculated, exudative malignant pleural effusion. (2) Pneumothorax: QUALIFIERS: Pneumothorax type: postprocedural Qualified Code(s): J95.811 - Postprocedural pneumothorax PLAN: Chest x-ray in the morning to follow-up on her 10% right-sided post procedure pneumothorax (3) COPD (chronic obstructive pulmonary disease): PLAN: Improving on ceftriaxone 2 g daily, DuoNeb every 6 hours, albuterol as needed methylprednisolone 40 mg IV every 8 - azithromycin 500 mg daily completed. - Respiratory status is stable at rest on 4 to 6 L/min oxygen. She would need at least this much to go home with, and should have ambulatory oximetry to titrate her exercise dose at home. (4) Metastatic cancer: PLAN: The patient will follow-up with oncology as an outpatient - She remains a full code, with stage IVb metastatic adenocarcinoma of the lung. Subjective Subjective Patient feels better today, is up in a chair, breathing comfortably, wants to go home. Her was at the bedside. Her cough is minimal, no hemoptysis. Her appetite is good. Chronic chest pain in the left lateral chest, described as sore but not pleuritic. O2 sats have been stable at 4 to 6 L/min. Objective Data Objective Data Vital Signs: Vital Signs Temp Pulse Resp BP Pulse Ox O2 Del Method O2 Flow Rate 98.0 F 89 18 117/52 L 93 Nasal Cannula 6 07/15/22 14:30 07/15/22 14:30 07/15/22 14:07/15/22 14:30 07/15/22 14:30 07/15/22 14:30 07/15/22 15:53 Oxygen Flow Rate (L/min) [3] 4 Oxygen Flow Rate (L/min) [2] 4 Oxygen Flow Rate (L/min) [1 ( 4 Initial Baseline)] Oxygen Flow Rate (L/min) 6 Oxygen Delivery Method [3] Nasal Cannula Oxygen Delivery Method [2] Nasal Cannula Oxygen Delivery Method [1 ( Nasal Cannula Initial Baseline)] Oxygen Delivery Method Nasal Cannula Weight: 122 lb 12.76 oz Body Mass Index (BMI) 19.8 Intake & Output: Intake and Output for Last 24 Hours 07/13/22 07/14/2207/15/23 23:59 23:59 23:59 Intake Total 905 / 905 1555 / 1585 815 / 815 Output Total 0 / 0 Balance 904 / 904 1555 / 1585 815 / 815 Medical Nutrition Assessment Dietitian: Malnutrition Criteria Met Start: 07/11/22 15:47 Freq: Status: Active Protocol: Document 07/14/22 14:54 RMA (Rec: 07/14/22 14:54 RMA [id number]) Nutrition Malnutrition Evidence of Malnutrition Exists Yes Malnutrition (severe): Chronic Evidenced By Suboptimal Energy Intake ( Severe),Weight Loss (Severe), Physical Changes (Severe) Clinical Problem Chronic Disease or Condition Related Malnutrition Etiology severe, chronic malnutrition related to inadequate energy intake w/ increased energy needs Signs/Symptoms as evidenced by unintentional wt loss of 19.2#/14% x 6 months; estimated PO intake meeting <75% of estimated energy needs > 3 months; Severe muscle wasting/fat loss evident per phyiscal exam in orbital, clavicle, acromion, and temporal areas; BMI 19.8 Status Active Problem Recommendation Dietitian Recommendations/Changes Will continue regular diet with magic cup at dinner as tolerated. Will continue 120ml Ensure plus high protein 4x/day with medpass. Lab / Micro Data Attestation: I reviewed the patient's lab results. Lab results narrative: Elevated white count on steroids Result Diagrams: 07/15/22 08:11 07/15/22 08:11 Labs: Laboratory Results - last 24 hr 07/15/22 08:11: WBC 15.9 H, RBC 4.35, Hgb 10.7 L, Hct 33.3 L, MCV 76.6 L, MCH 24.6 L, MCHC 32.1, RDW Std Deviation 40.4, RDW Coeff of Safia 14.7 H, Plt Count 533 H, MPV 9.2, Immature Gran % (Auto) 0.900, Neut % (Auto) 93.4 H, Lymph % (Auto) 1.8 L, [place] % (Auto) 3.8, Eos % (Auto) 0.0, Baso % (Auto) 0.1, Absolute Neuts (auto) 14.8 H, Absolute Lymphs (auto) 0.28 L, Nucleated RBC % 0, Differential Comment SCANNED 07/15/22 08:11: Sodium 132 L, Potassium 3.7, Chloride 97 L, Carbon Dioxide 26.0, Anion Gap 9, BUN 15, Creatinine 0.54 L, Estim Creat Clear Calc 48.00, Est GFR (MDRD) Af Amer 146, Est GFR (MDRD) Non-Af 121, BUN/Creatinine Ratio 28.0 H, Glucose 149 H, Calcium 9.1, Total Bilirubin 0.20, AST 28, ALT 27, Alkaline Phosphatase 137 H, Total Protein 6.8, Albumin 1.6 L, Globulin 5.2 H, Albumin/Globulin Ratio 0.3 L Micro: Microbiology 07/11/22 15:48 Urine, Clean Catch Legionella Antigen - Final 07/11/22 15:48 Urine, Clean Catch Streptococcus pneumoniae Antigen (M - Final Radiography Diagnostic Testing: Chest x-ray to follow-up 10% pneumothorax in the morning Rhythm Strip Rhythm Strip: Sinus Tach Rate: 144 Ectopy: None Physical Exam Narrative Well-developed well-nourished no acute distress, alert, pleasant, sitting up in a chair at bedside HEENT mucous membranes moist Chest is diminished on the right, better aeration on the left, no wheezes rales or rhonchi. Heart normal S1-S2 with no murmurs Extremities have no clubbing cyanosis or edema Neurologic is grossly nonfocal.
[2022-07-15] MEDS: oxyCODONE 5 MG Tablet PO (17:39)
[2022-07-16] VITALS: BP 115/70; PULSE 82; RESP 16; TEMP 36.6; O2SAT 93
[2022-07-16 01:09] VITALS: PULSE 90; RESP 18
[2022-07-16] MEDS: Ipratropium/Albuterol Sulfate 3 ML AMPUL.NEB INHALATION (01:09)
[2022-07-16 05:00] VITALS: BP 127/61; PULSE 88; RESP 16; TEMP 36.7; O2SAT 94
[2022-07-16] MEDS: 0.9% Saline Lock 10 ML Syringe IV (05:32)
--- NOTE | 2022-07-16 07:00 | RAD_ITS ---
STUDY: X-RAY CHEST REASON FOR EXAM: Female, 67 years old. Follow-up of right pneumothorax. TECHNIQUE: Single frontal view of the chest. COMPARISON: July 14, 2022. FINDINGS: Radiographic worsening with progression of atelectasis at the right lung. Large right pleural effusion which is increased in size since the prior study. Shift of the mediastinum to the right which has increased. Marked narrowing of the right mainstem bronchus distal to the lisa. Hyperinflation of the left lung. RAD/Chest 1 View (Portable) IMPRESSION: Radiographic worsening with increased right pleural effusion and progression of right atelectasis as described. No acute or emergent finding. Electronically Signed: Jonel Ramos, at 10:58 EDT ,
[2022-07-16 08:01] VITALS: PULSE 75; RESP 17; O2SAT 87
--- NOTE | 2022-07-16 08:49 | PN.HOSP_ITS ---
Reason for Visit Reason for Visit: Diagnoses Malignant neoplasm of unspecified part of right bronchus or lung (07/10/22) Secondary malignant neoplasm of unspecified site (07/10/22) Unspecified severe protein-calorie malnutrition (07/10/22) Other pericardial effusion (noninflammatory) (07/10/22) Lobar pneumonia, unspecified organism (07/10/22) Chronic obstructive pulmonary disease, unspecified (07/10/22) Pleural effusion, not elsewhere classified (07/10/22) Pneumothorax, unspecified (07/10/22) Postprocedural pneumothorax (07/10/22) Acute respiratory failure with hypoxia (07/10/22) Tachycardia, unspecified (07/10/22) Subjective Subjective Increased oxygen requirements from 6 to 12l/m. Objective Data Objective Data Vital Signs: Vital Signs Temp Pulse Resp BP Pulse Ox O2 Del Method O2 Flow Rate 36.7 C 88 16 127/61 H 94 Nasal Cannula 6 07/16/22 05:00 07/16/22 05:00 07/16/22 05:00 07/16/22 05:00 07/16/22 05:00 07/16/22 05:00 07/16/22 05:00 Oxygen Flow Rate (L/min) [3] 4 Oxygen Flow Rate (L/min) [2] 4 Oxygen Flow Rate (L/min) [1 ( 4 Initial Baseline)] Oxygen Flow Rate (L/min) 6 Oxygen Delivery Method [3] Nasal Cannula Oxygen Delivery Method [2] Nasal Cannula Oxygen Delivery Method [1 ( Nasal Cannula Initial Baseline)] Oxygen Delivery Method Nasal Cannula Weight: 55.7 kg Body Mass Index (BMI) 19.8 Intake & Output: Intake and Output for Last 24 Hours 07/14/22 07/15/22 07/16/22 23:59 23:59 23:59 Intake Total 1555 / 1585 1295 / 1295 Output Total 0 / 0 0 / 0 Balance 1555 / 1585 1295 / 1295 0 / 0 Medical Nutrition Assessment Dietitian: Malnutrition Criteria Met Start: 07/11/22 15:47 Freq: Status: Active Protocol: Document 07/14/22 14:54 RMA (Rec: 07/14/22 14:54 RMA [id number]) Nutrition Malnutrition Evidence of Malnutrition Exists Yes Malnutrition (severe): Chronic Evidenced By Suboptimal Energy Intake ( Severe),Weight Loss (Severe), Physical Changes (Severe) Clinical Problem Chronic Disease or Condition Related Malnutrition Etiology severe, chronic malnutrition related to inadequate energy intake w/ increased energy needs Signs/Symptoms as evidenced by unintentional wt loss of 19.2#/14% x 6 months; estimated PO intake meeting <75% of estimated energy needs > 3 months; Severe muscle wasting/fat loss evident per phyiscal exam in orbital, clavicle, acromion, and temporal areas; BMI 19.8 Status Active Problem Recommendation Dietitian Recommendations/Changes Will continue regular diet with magic cup at dinner as tolerated. Will continue 120ml Ensure plus high protein 4x/day with medpass. Lab / Micro Data Result Diagrams: 07/15/22 08:11 07/15/22 08:11 Labs: Laboratory Results - last 24 hr 07/15/22 08:11: Differential Comment SCANNED 07/15/22 08:11: Sodium 132 L, Potassium 3.7, Chloride 97 L, Carbon Dioxide 26.0, Anion Gap 9, BUN 15, Creatinine 0.54 L, Estim Creat Clear Calc 48.00, Est GFR (MDRD) Af Amer 146, Est GFR (MDRD) Non-Af 121, BUN/Creatinine Ratio 28.0 H, Glucose 149 H, Calcium 9.1, Total Bilirubin 0.20, AST 28, ALT 27, Alkaline Phosphatase 137 H, Total Protein 6.8, Albumin 1.6 L, Globulin 5.2 H, Albumin/Globulin Ratio 0.3 L Micro: Microbiology 07/11/22 15:48 Urine, Clean Catch Legionella Antigen - Final 07/11/22 15:48 Urine, Clean Catch Streptococcus pneumoniae Antigen (M - Final Rhythm Strip Rhythm Strip: Sinus Tach Rate: 144 Ectopy: None Physical Exam Const alert and no apparent distress Constitutional Narrative: cachetic. no respiratory distress. HEENT head/scalp atraumatic Assessment & Plan Assessment/Plan (1) Right lower lobe consolidation: PLAN: CTA shows No PE/dissection, wall thickening of right bronchioles, moderate right pleural effusion wbasilar infiltrate/atx, RUL ATX/paratracheal mas, collapse of RML In the meantime, pulmonary toilet, antibiotics with ceftriaxone and azithromycin Strep and legionella antigens negative SCx pending Repeat CAT scan showed mild loss of the right hemithorax with shift of the heart mediastinal structures of the right side of the midline with small to moderate size pleural effusion and almost complete collapse of the right upper lobe and compressive atelectasis of the right lower lobe. No worsening pleural effusion as was initially suggested on the chest x-ray from earlier today. Discussed with the patient that the pleural effusion is not significantly worse. We will plan on doing some vest therapy to see if we can open up her airways, if not may consult pulmonology to see have any additional recommendations. Repeat chest x-ray in the morning. 07/14: slightly improved aeration in RLL. Reviewed CT from [facility]. Pt had obstruction of RUL at that time. I suspect it opened up w XRT, but eventually obstructed again. DW Dr. Gamboa who will on consultation. Add steroids. 07/15: received vest therapy last night. Will monitor another 24h to see if any additional benefit. Tentative plan is for home with oxygen on 07/16. Pt and agreeable. 07/16: white-out of right lung field. (2) Non-small cell lung cancer: QUALIFIERS: Laterality: right Qualified Code(s): C34.91 - Malignant neoplasm of unspecified part of right bronchus or lung PLAN: Discussed with Dr. Goyal and stated that the biopsies were undifferentiated but appeared that the primary source was from her lung. Patient has been undergoing radiation treatment She has not desired to undergo chemotherapy, at least at this point in time. There is concerned about how she may tolerate chemotherapy she presented relatively poor performance status. Patient has known brain metastasis as well as subcutaneous lesions on her left posterior flank as well as her left buttocks. I do not know where the rest of her metastasis are, if she does have some. We will request records from [facility] (3) Pleural effusion, right: PLAN: Seen on CT given symptomatology, thoracentesis 07/12 with removal of 1000cc Malignant cells identified, favoring adenocarincoma Exudative. Likely due to malignancy. Repeat CT does not show reaccumulation of the fluid as initially was thought on the x-ray from today. (4) Sinus tachycardia: PLAN: Improved Appears to be sinus. Patient does take propranolol and will continue. Patient be monitored on telemetry Check 2D echocardiogram (5) Severe protein-calorie malnutrition: PLAN: Consult nutrition Start supplements with Ensure (6) Pneumothorax: QUALIFIERS: Pneumothorax type: postprocedural Qualified Code(s): J95.811 - Postprocedural pneumothorax PLAN: Iatrogenic from thoracentesis Resolved (7) Pericardial effusion: PLAN: Noted on CAT scans. Patient did have an echocardiogram on the that showed an EF of 55%. But was abbreviated due to noncooperation. PLAN: Plan VTE prophylaxis: SCDs for now in case patient does require a thoracentesis. CODE STATUS: Addressed with the patient. Patient wishes to be full code. Prognosis: guarded. Had a long conversation with the patient today expressed my concerns for her long-term outlook. I told the patient and her , who is at bedside, look very poor told her my recommendations for her to be hospice to make her comfortable. Patient immediately said that she was ready. I told them both that we would have hospice see her see what they can do to help. I did tell patient we can continue to treat her medically as I would be concerned that she may need another thoracentesis but she immediately said that she did not want that again. So patient and family met with hospice and they have agreed to proceed with hospice care services and patient be going to the hospice care unit today.
[2022-07-16] MEDS: guaiFENesin 1,200 MG Tablet 1200 MG PO (09:04)
[2022-07-16] MEDS: Ensure Plus High Protein 120 ML LIQUID PO (09:04)
[2022-07-16] MEDS: Propranolol 40 MG Tablet PO (09:04)
[2022-07-16 10:00] VITALS: BP 129/65; PULSE 85; RESP 18; TEMP 36.7; O2SAT 94
--- NOTE | 2022-07-16 13:50 | PCM.DC ---
Discharge Instructions Diet Discharge Diet: No restrictions Follow Up Care Test Results: Test results from this visit will be discussed in further detail at your follow-up appointment, if applicable. Discharge Plan Admission Admit Date/Time: 07/10/22 18:30 Primary Reason for Your Visit: pleural effusion. Attending Provider: Nick Jaffe Primary Care Provider: Sun Powers Consulting Providers: Domingo Doran ; Mateusz Coughlin ; Sma Esteban ; Emile Soliman ; Mary Grover SET UP MECHANIC ; Christine Lin ; Michael Salinas ; Chey Woods ; Nohelia Hernandez ; Baylee Olivier SET UP MECHANIC Instructions Patient Instructions: ASHLEY RN Thoracentesis Dc Discharge Orders/Prescriptions Prescriptions: New acetaminophen 325 mg Tablet 650 mg PO Q6H PRN PRN (Reason: Pain 1-10 Or Fever >100.7) Qty: 0 0RF Continued paroxetine HCl [Paxil] 40 MG tablet 20 mg PO DAILY Omeprazole [Prilosec] 40 MG capsule 20 mg PO DAILY prednisone 10 mg tablet 10 mg PO DAILY trazodone 50 mg tablet 100 mg PO QHS hydrocodone-acetaminophen 5-325 mg tablet 1 tab PO Q6H PRN PRN (Reason: Pain) haloperidol 1 mg tablet 1 mg PO BID prednisone 10 mg Tablet 5 mg PO QHS albuterol sulfate 90 mcg/actuation HFA aerosol inhaler 2 puff INHALATION Q4H PRN PRN (Reason: sob) Label Comments: INHALE 2 (TWO) PUFFS BY MOUTH EVERY 4 HOURS NEEDED Trelegy Ellipta 100-62.5-25 mcg blister with device 1 inh INHALATION DAILY Label Comments: INHALE 1 PUFF DAILY Discontinued pravastatin 20 mg tablet 20 mg PO DAILY Label Comments: TAKE 1 TABLET BY MOUTH AT BEDTIME Referrals / Follow Up: Sun Powers [Primary Care Provider] - Disposition Disposition (needs filled in before D/C Order can be placed): Hospice in Medical Facility
--- NOTE | 2022-07-16 13:53 | PCM.DC.SUM ---
Providers Date of Admission: 07/10/22 Primary Care Physician: Dr. Sun Powers Consultations 07/10/22 19:24 Consult: Onc/Wound/stadium manager Routine Comment: 07/14/22 09:35 Consult: Bowstring Maker / Pulmonary Medicine Routine Consulting Provider: Pulmonary Medicine v[facility]i [place] Reason for Consult: lung mass EMERGENT Consult: No Notified: Yes Date Notified: 07/14/22 Time Notified: 09:36 Method of Notification: Verbal 07/16/22 09:46 Consult: Hospice / Palliative Care Routine Consulting Provider: [facility] Reason for Consult: stage 4 lung cancer EMERGENT Consult: No Notified: Yes Date Notified: 07/16/22 Time Notified: 09:46 Method of Notification: Verbal Reason For Visit: PNEUMONIA Diagnosis Discharge Diagnosis (1) Right lower lobe consolidation: Status: Acute Code(s): J18.1 - Lobar pneumonia, unspecified organism Plan: CTA shows No PE/dissection, wall thickening of right bronchioles, moderate right pleural effusion wbasilar infiltrate/atx, RUL ATX/paratracheal mas, collapse of RML In the meantime, pulmonary toilet, antibiotics with ceftriaxone and azithromycin Strep and legionella antigens negative SCx pending Repeat CAT scan showed mild loss of the right hemithorax with shift of the heart mediastinal structures of the right side of the midline with small to moderate size pleural effusion and almost complete collapse of the right upper lobe and compressive atelectasis of the right lower lobe. No worsening pleural effusion as was initially suggested on the chest x-ray from earlier today. Discussed with the patient that the pleural effusion is not significantly worse. We will plan on doing some vest therapy to see if we can open up her airways, if not may consult pulmonology to see have any additional recommendations. Repeat chest x-ray in the morning. 07/14: slightly improved aeration in RLL. Reviewed CT from [facility]. Pt had obstruction of RUL at that time. I suspect it opened up w XRT, but eventually obstructed again. DW Dr. Gamboa who will on consultation. Add steroids. 07/15: received vest therapy last night. Will monitor another 24h to see if any additional benefit. Tentative plan is for home with oxygen on 07/16. Pt and agreeable. 07/16: white-out of right lung field. (2) Non-small cell lung cancer: Status: Acute Code(s): C34.90 - Malignant neoplasm of unspecified part of unspecified bronchus or lung Qualifiers: Laterality: right Qualified Code(s): C34.91 - Malignant neoplasm of unspecified part of right bronchus or lung Plan: Discussed with Dr. Goyal and stated that the biopsies were undifferentiated but appeared that the primary source was from her lung. Patient has been undergoing radiation treatment She has not desired to undergo chemotherapy, at least at this point in time. There is concerned about how she may tolerate chemotherapy she presented relatively poor performance status. Patient has known brain metastasis as well as subcutaneous lesions on her left posterior flank as well as her left buttocks. I do not know where the rest of her metastasis are, if she does have some. We will request records from [facility] (3) Pleural effusion, right: Status: Acute Code(s): J90 - Pleural effusion, not elsewhere classified Plan: Seen on CT given symptomatology, thoracentesis 07/12 with removal of 1000cc Malignant cells identified, favoring adenocarincoma Exudative. Likely due to malignancy. Repeat CT does not show reaccumulation of the fluid as initially was thought on the x-ray from today. (4) Sinus tachycardia: Status: Acute Code(s): R00.0 - Tachycardia, unspecified Plan: Improved Appears to be sinus. Patient does take propranolol and will continue. Patient be monitored on telemetry Check 2D echocardiogram (5) Severe protein-calorie malnutrition: Status: Acute Code(s): E43 - Unspecified severe protein-calorie malnutrition Plan: Consult nutrition Start supplements with Ensure (6) Pneumothorax: Status: Acute Code(s): J93.9 - Pneumothorax, unspecified Qualifiers: Pneumothorax type: postprocedural Qualified Code(s): J95.811 - Postprocedural pneumothorax Plan: Iatrogenic from thoracentesis Resolved (7) Pericardial effusion: Status: Acute Code(s): I31.39 - Other pericardial effusion (noninflammatory) Plan: Noted on CAT scans. Patient did have an echocardiogram on the that showed an EF of 55%. But was abbreviated due to noncooperation. Plan VTE prophylaxis: SCDs for now in case patient does require a thoracentesis. CODE STATUS: Addressed with the patient. Patient wishes to be full code. Prognosis: guarded. Had a long conversation with the patient today expressed my concerns for her long-term outlook. I told the patient and her , who is at bedside, look very poor told her my recommendations for her to be hospice to make her comfortable. Patient immediately said that she was ready. I told them both that we would have hospice see her see what they can do to help. I did tell patient we can continue to treat her medically as I would be concerned that she may need another thoracentesis but she immediately said that she did not want that again. So patient and family met with hospice and they have agreed to proceed with hospice care services and patient be going to the hospice care unit today. Medications at Discharge Home Medications Omeprazole [Prilosec] 20 mg PO DAILY Check with primary doctor 03/06/16 paroxetine HCl 40 mg tablet (Paxil) 20 mg PO DAILY Check with primary doctor 03/06/16 albuterol sulfate 90 mcg/actuation aerosol inhaler 2 puff inhalation Q4H PRN PRN sob 07/10/22 fluticasone fur. 100 mcg-umeclid 62.5 mcg-vilant 25 mcg inhalat.powder (Trelegy Ellipta) 1 inh inhalation DAILY sob 07/10/22 haloperidol 1 mg tablet 1 mg PO BID Check with primary doctor 07/10/22 hydrocodone-acetaminophen 5-325mg 5mg-325mg 1 tab PO Q6H PRN PRN Pain 07/10/22 prednisone 10 mg tablet 5 mg PO QHS Check with primary doctor 07/10/22 prednisone 10 mg tablet 10 mg PO DAILY Check with primary doctor 07/10/22 trazodone 50 mg tablet 100 mg PO QHS Check with primary doctor 07/10/22 acetaminophen 325 mg tablet 650 mg PO Q6H PRN PRN Pain 1-10 Or Fever >100.7 #0 tabs 07/16/22 Hospital Course Operations None Procedures 2-D Echocardiogram and Thoracentesis Summary of Care Provided Minutes Spent on Discharge: 45 Hospital Course: This is a 7-year-old female presents from radiation treatment short of breath when they tried to lay her flat. Patient was found to have pericardial effusion and underwent a thoracentesis on the . She had 1 L of exudative fluid removed. She did develop a small pneumothorax. The pneumothorax steadily improved but patient actually had a worsening obstructive lesion from the mass. Patient's oxygen requirements continue to worsen while she was here. Patient was offered no other thoracentesis and also the opportunity be transferred to a tertiary facility for evaluation for bronchial stent. But I strongly recommended to the patient today, as well as her , hospice as I would be greatly concerned about her long-term outlook. Patient was agreeable and did meet with hospice today. Patient will be going to the inpatient hospice unit. Medical Records Data Medical Nutrition Assessment Dietitian: Malnutrition Criteria Met Start: 07/11/22 15:47 Freq: Status: Active Protocol: Document 07/14/22 14:54 RMA (Rec: 07/14/22 14:54 RMA [id number]) Nutrition Malnutrition Evidence of Malnutrition Exists Yes Malnutrition (severe): Chronic Evidenced By Suboptimal Energy Intake ( Severe),Weight Loss (Severe), Physical Changes (Severe) Clinical Problem Chronic Disease or Condition Related Malnutrition Etiology severe, chronic malnutrition related to inadequate energy intake w/ increased energy needs Signs/Symptoms as evidenced by unintentional wt loss of 19.2#/14% x 6 months; estimated PO intake meeting <75% of estimated energy needs > 3 months; Severe muscle wasting/fat loss evident per phyiscal exam in orbital, clavicle, acromion, and temporal areas; BMI 19.8 Status Active Problem Recommendation Dietitian Recommendations/Changes Will continue regular diet with magic cup at dinner as tolerated. Will continue 120ml Ensure plus high protein 4x/day with medpass. Weight / BMI Weight Weight: 55.7 kg Body Mass Index (BMI) 19.8 ABG / Lab / Microbiology Data Result Diagrams: 07/15/22 08:11 07/15/22 08:11 Microbiology: Microbiology 07/11/22 15:48 Urine, Clean Catch Legionella Antigen - Final 07/11/22 15:48 Urine, Clean Catch Streptococcus pneumoniae Antigen (M - Final Radiography Diagnostic Testing: Radiology Impression Chest X-Ray 07/16/22 07:00 IMPRESSION: Radiographic worsening with increased right pleural effusion and progression of right atelectasis as described. No acute or emergent finding. Electronically Signed: Jonel Ramos, at 10:58 EDT , D/C Instructions Discharge Diet: No restrictions Meaningful Use Info Meaningful Use Diagnoses (Choose all that apply): None applicable Discharge Plan Admission Admit Date/Time: 07/10/22 18:30 Primary Reason for Your Visit: pleural effusion. Attending Provider: Nick Jaffe Primary Care Provider: Sun Powers Consulting Providers: Domingo Doran ; Mateusz Coughlin ; aSm Esteban ; Emile Soliman ; Mary Grover EVAPORATOR HELPER ; Christine Lin ; Michael Salinas ; Chey Woods ; Nohelia Hernandez ; Baylee Olivier EVAPORATOR HELPER Instructions Patient Instructions: ASHLEY RN Thoracentesis Dc Discharge Orders/Prescriptions Prescriptions: New acetaminophen 325 mg Tablet 650 mg PO Q6H PRN PRN (Reason: Pain 1-10 Or Fever >100.7) Qty: 0 0RF Continued paroxetine HCl [Paxil] 40 MG tablet 20 mg PO DAILY Omeprazole [Prilosec] 40 MG capsule 20 mg PO DAILY prednisone 10 mg tablet 10 mg PO DAILY trazodone 50 mg tablet 100 mg PO QHS hydrocodone-acetaminophen 5-325 mg tablet 1 tab PO Q6H PRN PRN (Reason: Pain) haloperidol 1 mg tablet 1 mg PO BID prednisone 10 mg Tablet 5 mg PO QHS albuterol sulfate 90 mcg/actuation HFA aerosol inhaler 2 puff INHALATION Q4H PRN PRN (Reason: sob) Label Comments: INHALE 2 (TWO) PUFFS BY MOUTH EVERY 4 HOURS NEEDED Trelegy Ellipta 100-62.5-25 mcg blister with device 1 inh INHALATION DAILY Label Comments: INHALE 1 PUFF DAILY Discontinued pravastatin 20 mg tablet 20 mg PO DAILY Label Comments: TAKE 1 TABLET BY MOUTH AT BEDTIME Referrals / Follow Up: Sun Powers [Primary Care Provider] - Disposition Disposition (needs filled in before D/C Order can be placed): Hospice in Medical Facility Charges/Coding Visit Charges Inpatient E&M: 24107 Disch Hosp >30min
[2022-07-16 13:55] VITALS: PULSE 70; RESP 18
[2022-07-16] MEDS: oxyCODONE 5 MG Tablet PO (14:14)
== END 2022-07-16 15:39 | disposition hospice, inpatient (51) | DRG 193 ==
LOC: ED 18:10 → PCU 18:45
PROVIDERS: Emergency Provider Emergency Medicine
DX: J18.1 Lobar pneumonia, unspecified organism (principal); E43 Unspecified severe protein-calorie malnutrition; J96.01 Acute respiratory failure with hypoxia; I31.39 Other pericardial effusion (noninflammatory); C34.91 Malignant neoplasm of unspecified part of right bronchus or lung; J95.811 Postprocedural pneumothorax; C79.31 Secondary malignant neoplasm of brain; J44.0 Chronic obstructive pulmonary disease with (acute) lower respiratory infection; J91.0 Malignant pleural effusion; Z68.1 Body mass index [BMI] 19.9 or less, adult; E88.09 Other disorders of plasma-protein metabolism, not elsewhere classified; E78.5 Hyperlipidemia, unspecified; R00.0 Tachycardia, unspecified; Z87.891 Personal history of nicotine dependence; Z51.5 Encounter for palliative care; Z79.51 Long term (current) use of inhaled steroids; Z92.3 Personal history of irradiation
CPT/HCPCS: 32555; 36415; 71045; 71046; 71260; 71275; 80048; 80053; 82803; 83605; 83615; 84157; 85025; 85610; 87449; 88108; 88305; 88313; 88341; 88342; 89050; 93005; 93306; 94640; 94667; 94668; 97110; 97162; 97166; 97530; 97535; 97802; 99252; 99285; J7050; Q9967; A4216; G0463; J0696